=== PATIENT | female | born 1980 | race Caucasian/White ===

== ENCOUNTER 2023-11-08 05:49 | Inpatient (IN) | payer BC, SELFPAY ==
[2023-11-08] VITALS (41 sets, daily range): BP systolic 142–240; BP diastolic 89–141; PULSE 45–77; RESP 12–24; TEMP 36.6–37; O2SAT 93–100; BMI 29.7
--- NOTE | 2023-11-08 05:51 | XR_ITS ---
PROCEDURE INFORMATION: Exam: XR Chest Exam date and time: 11/08/2023 6:07 AM Age: 43 years old Clinical indication: Pain; Chest pressure; Additional info: Cp TECHNIQUE: Imaging protocol: Radiologic exam of the chest. Views: 1 view. COMPARISON: No relevant prior studies available. FINDINGS: Lungs: Unremarkable. No consolidation. Pleural spaces: Unremarkable. No pleural effusion. No pneumothorax. Heart/Mediastinum: Unremarkable. No cardiomegaly. Bones/joints: Unremarkable. IMPRESSION: No acute findings.
--- NOTE | 2023-11-08 05:51 | ECG_ITS ---
APPROVED REPORT Exam: Resting ECG HR:63 bpm ECG Measurements Heart Rate [address] 196 P 55 QRSd 108 QRS 37 QT 421 T 72 QTc 429 Conclusion SINUS RHYTHM POSSIBLE ANTERIOR MYOCARDIAL INFARCTION , PROBABLY OLD [30 ms Q WAVE IN V3/V4, OR R < 0.2 mV IN V4] Electronically signed by : SAQIB SARAVIA, 11/08/2023 15:56:07
--- NOTE | 2023-11-08 06:10 | [facility].EDCP ---
Discharge Plan Disposition Patient Disposition: Still a Patient Clinical Impressions Clinical Impression: Chest pain Discharge ED Provider: Angelica Cohen HPI <Hannah Atkins MD - Last Filed: 11/08/23 06:51> General Chief Complaint: Chest Pain Stated Complaint: Chest pain Time Seen by Provider: 11/08/23 05:51 Mode of Arrival: EMS Source of Information: Patient and EMS Limitations: No Limitations Description of Symptoms (Recalled from ER Triage Doc. by RN): 43 F presents from home with c/o [id number] chest pain that feels like indigestion rating it 4/10. 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 The last time she had HFCS this same episode happened. Patient was hypertensive when EMS arrive with systolic of 240. 5 minutes later when her chest pain was gone her BP systolic was 108. Upon arrival here patient is NAD, hypertensive again with the chest pain. History of Present Illness HPI narrative: 43-year-old female presents to the ER with concerns of midsternal chest pain that she states feels similar to heartburn. Pain does not radiate. Patient reports only taking natural products such as vitamins and eating whole foods, however she recently consumed a blizzard from [employer] which she believes likely had high fructose corn syrup and it. She states she had her band sawing machine operator doctor have discussed this previously and know that it causes her to have severe indigestion, severe high blood pressure. Patient reports she has previously been evaluated for similar symptoms and has had CTs, MRIs, cardiac workups, and it has never found anything. EMS reports that when they arrived on scene, she had blood pressure of 240. She was having chest pain at that time. Her chest pain spontaneously resolved and her blood pressure normalized to a systolic of 108. Upon arrival in the ER, her chest pain returned, initial blood pressure was 248, systolics have remained above 220. She continues having chest pain at this time. Patient denies any nausea, dizziness. She is refusing any medications at this time. Related Data Home Medications Medication Instructions Recorded Confirmed No Known Home Medications 11/08/23 11/08/23 Allergies Allergy/AdvReac Type Severity Reaction Status Date / Time Gadolinium-Containing Allergy Unknown Verified 11/08/23 05:57 Contrast Medi PFSH <Hannah Atkins MD - Last Filed: 11/08/23 06:51> FOR[facility]LY [facility] Disclaimer: The information contained in this section may have been updated after the patient was seen, as this information can be updated by other users. Medical History (Updated 11/08/23 @ 06:51 by Hannah Atkins MD) Hypertension Social History (Updated 11/08/23 @ 05:57 by Jaime Ho RN) Smoking Status: Current every day smoker alcohol intake: former current occupational status: employed Travel in the last 8 weeks: None <Hannah Atkins MD - Last Filed: 11/08/23 06:51> ROS Obtained: Yes All systems reviewed & no additional complaints except as documented Constitutional Constitutional: Denies chills, Denies fever(s), Denies headache(s) and Denies weakness Eyes Eyes: Denies change in vision ENT Ears, Nose, Mouth, and Throat: Denies dizziness, Denies headache(s), Denies nasal congestion and Denies sore throat Cardiovascular Cardiovascular: Reports chest pain, Denies dyspnea and Denies leg edema Respiratory Respiratory: Denies cough and Denies dyspnea Gastrointestinal Gastrointestingal: Denies abdominal pain, constipation, diarrhea, nausea or vomiting Genitourinary Female Genitourinary: Denies dysuria Musculoskeletal Musculoskeletal: Denies arthralgias, Denies myalgias, Denies numbness and Denies tingling Integumentary/Breasts Skin/Breast: Denies change in pigmentation Neurologic Neurologic: Denies dizziness, Denies headache(s), Denies numbness, Denies tingling and Denies weakness Physical Exam <Hannah Atkins MD - Last Filed: 11/08/23 06:51> General General appearance: alert and in no apparent distress Head Head exam: atraumatic and normocephalic Eye Eye exam: Present PERRL and EOMI ENT ENT exam: Present mucous membranes moist Neck Neck exam: Present normal inspection and full ROM Chest Chest inspection: Present symmetric chest wall rise Respiratory Respiratory exam: Present normal lung sounds bilaterally; Absent respiratory distress, wheezes or stridor Cardiovascular Cardiovascular exam: Present regular rate and normal rhythm Abdominal Exam Abdominal exam: Present soft; Absent distention, tenderness, guarding or rebound Extremities Exam Extremities exam: Present full ROM and other (2+ DP and PT); Absent edema Neurological Exam Neurological exam: Present alert and oriented X3; Absent motor sensory deficit Psychiatric Psychiatric exam: Present normal affect and normal mood Skin Skin exam: Present warm and dry HEART Score <MD Megan Eason Last Filed: 11/08/23 06:51> HEART Score HEART Score assessment performed?: No <Angelica Cohen DO - Last Filed: 11/08/23 12:29> HEART Score HEART Score assessment performed?: Yes History (anamnesis): Slightly suspicious ECG: Normal Age: <45 years Risk factors: No known risk factors Troponin: </= normal limit HEART Score: 0 Critical Care <MD Megan Eason Last Filed: 11/08/23 06:51> Critical Care Time Critical Care Time: No Medical Decision Making <Hannah Atkins MD - Last Filed: 11/08/23 06:51> Luke Inquiry Pt receiving controlled substance: No Vital Signs Vital Signs: 11/08/23 05:49 11/08/23 05:59 11/08/23 06:00 Temperature 98.6 F Temperature Source Oral Pulse Rate 60 62 Pulse Rate [Left] 70 Respiratory Rate 17 18 16 Blood Pressure 208/128 H 220/118 H Blood Pressure [Right Arm] 240/141 H Blood Pressure Mean 154 Blood Pressure Mean [Right Arm] 174 Blood Pressure Source Manual Cuff/ Auscultation Blood Pressure Source [Right Arm] Automatic Cuff Blood Pressure Position Sitting Blood Pressure Position [Right Arm] Sitting 02 Sat by Pulse Oximetry 97 97 97 Oxygen Delivery Method Room Air Room Air Room Air 11/08/23 06:00 11/08/23 06:04 11/08/23 06:07 Temperature Temperature Source Pulse Rate 62 70 Pulse Rate [Left] Respiratory Rate 13 Blood Pressure 198/122 H 198/122 H Blood Pressure [Right Arm] Blood Pressure Mean Blood Pressure Mean [Right Arm] Blood Pressure Source Blood Pressure Source [Right Arm] Blood Pressure Position Blood Pressure Position [Right Arm] 02 Sat by Pulse Oximetry 97 Oxygen Delivery Method Room Air 11/08/23 06:21 11/08/23 06:30 11/08/23 07:01 Temperature Temperature Source Pulse Rate 77 67 64 Pulse Rate [Left] Respiratory Rate 20 16 Blood Pressure 202/129 H 180/95 H 179/93 H Blood Pressure [Right Arm] Blood Pressure Mean 153 123 Blood Pressure Mean [Right Arm] Blood Pressure Source Blood Pressure Source [Right Arm] Blood Pressure Position Blood Pressure Position [Right Arm] 02 Sat by Pulse Oximetry 97 98 99 Oxygen Delivery Method Room Air Room Air Room Air 11/08/23 07:30 11/08/23 10:44 Temperature 98.1 F Temperature Source Oral Pulse Rate 69 69 Pulse Rate [Left] Respiratory Rate 17 17 Blood Pressure 176/97 H 176/97 H Blood Pressure [Right Arm] Blood Pressure Mean Blood Pressure Mean [Right Arm] Blood Pressure Source Automatic Cuff Blood Pressure Source [Right Arm] Blood Pressure Position Sitting Blood Pressure Position [Right Arm] 02 Sat by Pulse Oximetry 96 Oxygen Delivery Method Room Air Room Air Lab Data Labs: Lab Results 11/08/23 06:03: WBC 12.0 H, RBC 5.60 H, Hgb 12.3, Hct 38.2, MCV 68.2 L, MCH 21.9 L, MCHC 32.1, RDW 18.4 H, Plt Count 387, MPV 7.7, Neut % (Auto) 61.5, Lymph % (Auto) 25.3, [place] % (Auto) 7.5, Eos % (Auto) 4.8, Baso % (Auto) 0.9, Neut # (Auto) 7.4, Lymph # (Auto) 3.0, [place] # (Auto) 0.9, Eos # (Auto) 0.6 H, Baso # (Auto) 0.1, Sodium 142, Potassium 3.5, Chloride 107, Carbon Dioxide 29, Anion Gap 9.5, BUN 7, Creatinine 0.90, Estimated Creat Clear 109, Estimated GFR 68, Est GFR ( Amer) 82, Glucose 102 H, Calcium 9.7, Total Bilirubin 0.3, AST 26, ALT 22, Alkaline Phosphatase 76, Troponin I 0.02, Total Protein 6.9, Albumin 3.9, Globulin 3.0, Albumin/Globulin Ratio 1.3, Serum HCG, Qual Negative 11/08/23 08:47: Troponin I 0.21 H 11/08/23 06:03 11/08/23 06:03 Response Orders (Tests/Meds): ED MEDICATIONS Generic Name Dose Route Start Last Admin Trade Name Freq PRN Reason Stop Dose Admin Aspirin 81 mg 11/09/23 09:00 Aspirin Ec 81mg Tablet PO 06/13/24 08:59 DAILY TRAVIS Atorvastatin Calcium 40 mg 11/08/23 21:00 Atorvastatin 40mg Tablet PO 12/08/23 20:59 HS [facility] Fentanyl Citrate 50 mcg 11/08/23 10:45 11/08/23 11:17 Fentanyl 100mcg/2ml Vial IV 11/08/23 22:45 200 mcg Q3MINP PRN Administration Moderate to Severe Pain (4-10) Fentanyl Citrate 25 mcg 11/08/23 10:45 Fentanyl 250mcg/5ml Vial IV 11/08/23 22:45 Q3MINP PRN Moderate to Severe Pain (4-10) Fentanyl Citrate 50 mcg 11/08/23 10:45 Fentanyl 250mcg/5ml Vial IV 11/08/23 22:45 Q3MINP PRN Moderate to Severe Pain (4-10) Fentanyl Citrate 25 mcg 11/08/23 10:45 Fentanyl 100mcg/2ml Vial IV 11/08/23 22:45 Q3MINP PRN Moderate to Severe Pain (4-10) Flumazenil 0.2 mg 11/08/23 10:45 Flumazenil 0.1mg/Ml 5ml Vial IV 11/08/23 22:45 NEEDED PRN Sedation Heparin Sodium (Porcine) 10,000 unit 11/08/23 10:45 11/08/23 11:06 Heparin 1,000 Units/Ml 10ml Vial (General Administrator) IV 11/08/23 14:45 11,600 unit NEEDED PRN Administration [facility] Provider Hydralazine HCl 20 mg 11/08/23 10:45 Hydralazine 20mg/Ml Vial IV 11/08/23 14:45 ONCE PRN sbp>160 Adenosine 180 mg/ Sodium 90 mls @ 465.388 mls/hr 11/08/23 10:45 Chloride IV 11/08/23 14:45 ONCE PRN fractional flow reserve 180 MCG/KG/MIN Adenosine 90 mg/ Sodium 90 mls @ 930.776 mls/hr 11/08/23 10:45 Chloride IV 11/08/23 14:45 ONCE PRN fractional flow reserve 180 MCG/KG/MIN Sodium Chloride 1,000 mls @ 25 mls/hr 11/08/23 10:45 11/08/23 11:07 Sod Chloride 0.9% 500ml Bag IV 11/09/23 10:45 25 mls/hr .Q25H TRAVIS Administration Irbesartan 150 mg 11/08/23 12:30 Irbesartan 150mg Tab PO 12/08/23 12:29 DAILY TRAVIS Labetalol HCl 20 mg 11/08/23 10:45 Labetalol 20mg/4ml Syringe IV 11/08/23 14:45 ONCE PRN sbp>160 Metoprolol Tartrate 12.5 mg 11/08/23 21:00 Metoprolol Tartrate 25mg Tablet PO 12/08/23 20:59 BID TRAVIS Midazolam HCl 1 mg 11/08/23 10:45 Midazolam 2mg/2ml Vial IV 11/08/23 22:45 Q3MINP PRN Sedation Midazolam HCl 1 mg 11/08/23 10:45 11/08/23 11:17 Midazolam Hcl 1mg/1ml 5ml Vial IV 11/08/23 22:45 10 mg Q3MINP PRN Administration Sedation Miscellaneous 1 each 11/08/23 11:42 Consider Pt For Dual Antiplatelet Therapy At Discharge-Stent NOTAPPLIC 12/08/23 11:41 NEEDED PRN Reminder for s/p stent Naloxone HCl 0.4 mg 11/08/23 10:45 Naloxone 0.4mg/Ml Vial IV 11/08/23 22:45 Q5MINP PRN Decreased Respirations Nitroglycerin 800 mcg 11/08/23 10:45 11/08/23 11:06 Nitroglycerin 800mcg/8ml Syr (General Administrator) IA 11/08/23 14:45 800 mcg NEEDED PRN Administration [facility] Provider Nitroglycerin 0.4 mg 11/08/23 11:42 Nitroglycerin 0.4mg Sl Tablet SL 12/08/23 11:41 Q5MINP PRN Chest Pain Prasugrel 10 mg 11/09/23 09:00 Prasugrel 10mg Tab PO 12/09/23 08:59 DAILY TRAVIS Protamine Sulfate 50 mg 11/08/23 10:45 Protamine Sulfate 50mg/5ml Vial (General Administrator) IV 11/08/23 14:45 ONCE PRN act>200 Discontinued Medications Generic Name Dose Route Start Last Admin Trade Name Freq PRN Reason Stop Dose Admin Aspirin 324 mg 11/08/23 10:09 11/08/23 10:14 Aspirin 81mg Chewable Tablet PO 11/08/23 10:10 324 mg ONCE ONE Administration Diphenhydramine HCl 50 mg 11/08/23 10:45 11/08/23 11:06 Diphenhydramine 50mg/Ml Vial IV 11/08/23 10:46 50 mg ONCE ONE Administration Heparin Sodium/Sodium Chloride 3,000 unit 11/08/23 10:45 11/08/23 11:07 Heparin 1,000 Units/500ml Ns (General Administrator) IV 11/08/23 10:46 3,000 unit ONCE ONE Administration Labetalol HCl 10 mg 11/08/23 05:51 11/08/23 06:07 Labetalol 20mg/4ml Syringe IV 11/08/23 05:52 Not Given ONCE ONE Lidocaine HCl 20 ml 11/08/23 10:45 11/08/23 11:06 Lidocaine 1% 10ml Mdv IJ 11/08/23 10:46 10 ml ONCE ONE Administration Lidocaine HCl 20 ml 11/08/23 10:45 Lidocaine 1% 5ml Pf Vial IJ 11/08/23 10:46 ONCE ONE Verapamil HCl 2.5 mg 11/08/23 10:45 11/08/23 11:06 Verapamil 2.5mg/Ml 2ml Vial IV 11/08/23 10:46 2.5 mg ONCE ONE Administration ORDERS Category Date Time Status Cardiology Consult [Consult to Cardiology] [CONS] Cons 11/08/23 10:13 Active Routine CXR --portable [XR chest portable] Stat Exams 11/08/23 05:51 Completed Basic Metabolic Panel Stat Lab 11/08/23 10:45 Ordered CBC w/Auto Diff [Complete Blood Count Auto Diff] Stat Lab 11/08/23 06:03 Completed CMP [Comprehensive Metabolic Panel] Stat Lab 11/08/23 06:03 Completed Complete Blood Count Auto Diff Stat Lab 11/08/23 10:45 Ordered HCG Qualitative, Serum Stat Lab 11/08/23 06:03 Completed Trop I [Troponin I] Stat Lab 11/08/23 06:03 Completed Troponin I Q3H Lab 11/08/23 08:47 Completed MDM Narrative Medical Decision Narrative: In summary, this 43year old female who reportedly has a reaction to high fructose corn syrup presents to the emergency department today with high blood pressure, chest pain. On initial evaluation patient is hypertensive, normal heart rate, having active chest pain, no tenderness to palpation of the chest, no peripheral edema, no neurologic deficits. Differential diagnosis includes but is not limited to hypertensive urgency, hypertensive emergency, ACS, I considered PE but patient is PERC negative, also considered pneumothorax. ECG personally interpreted demonstrates normal sinus rhythm, rate 63, normal axis, borderline prolonged DC at 196, QTc normal at 429, no STEMI. I ordered IV labetalol for treatment of findings consistent with symptomatic severe hypertension, hypertensive urgency/emergency. Patient adamantly refuses any medications at this time. I explained to her that the risk of having persistently high blood pressure includes heart attack, stroke, permanent kidney damage. Patient understands and is competent to make this decision, she continues to refuse all medications at this time. Labs personally reviewed demonstrate mild leukocytosis, no anemia, normal electrolytes, no findings of kidney dysfunction, no findings of liver dysfunction. Initial troponin pending. XR personally interpreted demonstrates no acute intrathoracic abnormality, see radiology read for final interpretation. Patient handed off to Dr. Cohen at physician shift change for further management and disposition pending serial troponins and continued management. <Angelica Cohen, DO - Last Filed: 11/08/23 12:29> Vital Signs Vital Signs: 11/08/23 05:49 11/08/23 05:59 11/08/23 06:00 Temperature 98.6 F Temperature Source Oral Pulse Rate 60 62 Pulse Rate [Left] 70 Respiratory Rate 17 18 16 Blood Pressure 208/128 H 220/118 H Blood Pressure [Right Arm] 240/141 H Blood Pressure Mean 154 Blood Pressure Mean [Right Arm] 174 Blood Pressure Source Manual Cuff/ Auscultation Blood Pressure Source [Right Arm] Automatic Cuff Blood Pressure Position Sitting Blood Pressure Position [Right Arm] Sitting 02 Sat by Pulse Oximetry 97 97 97 Oxygen Delivery Method Room Air Room Air Room Air 11/08/23 06:00 11/08/23 06:04 11/08/23 06:07 Temperature Temperature Source Pulse Rate 62 70 Pulse Rate [Left] Respiratory Rate 13 Blood Pressure 198/122 H 198/122 H Blood Pressure [Right Arm] Blood Pressure Mean Blood Pressure Mean [Right Arm] Blood Pressure Source Blood Pressure Source [Right Arm] Blood Pressure Position Blood Pressure Position [Right Arm] 02 Sat by Pulse Oximetry 97 Oxygen Delivery Method Room Air 11/08/23 06:21 11/08/23 06:30 11/08/23 07:01 Temperature Temperature Source Pulse Rate 77 67 64 Pulse Rate [Left] Respiratory Rate 20 16 Blood Pressure 202/129 H 180/95 H 179/93 H Blood Pressure [Right Arm] Blood Pressure Mean 153 123 Blood Pressure Mean [Right Arm] Blood Pressure Source Blood Pressure Source [Right Arm] Blood Pressure Position Blood Pressure Position [Right Arm] 02 Sat by Pulse Oximetry 97 98 99 Oxygen Delivery Method Room Air Room Air Room Air 11/08/23 07:30 11/08/23 10:44 Temperature 98.1 F Temperature Source Oral Pulse Rate 69 69 Pulse Rate [Left] Respiratory Rate 17 17 Blood Pressure 176/97 H 176/97 H Blood Pressure [Right Arm] Blood Pressure Mean Blood Pressure Mean [Right Arm] Blood Pressure Source Automatic Cuff Blood Pressure Source [Right Arm] Blood Pressure Position Sitting Blood Pressure Position [Right Arm] 02 Sat by Pulse Oximetry 96 Oxygen Delivery Method Room Air Room Air Lab Data Labs: Lab Results 11/08/23 06:03: WBC 12.0 H, RBC 5.60 H, Hgb 12.3, Hct 38.2, MCV 68.2 L, MCH 21.9 L, MCHC 32.1, RDW 18.4 H, Plt Count 387, MPV 7.7, Neut % (Auto) 61.5, Lymph % (Auto) 25.3, [place] % (Auto) 7.5, Eos % (Auto) 4.8, Baso % (Auto) 0.9, Neut # (Auto) 7.4, Lymph # (Auto) 3.0, [place] # (Auto) 0.9, Eos # (Auto) 0.6 H, Baso # (Auto) 0.1, Sodium 142, Potassium 3.5, Chloride 107, Carbon Dioxide 29, Anion Gap 9.5, BUN 7, Creatinine 0.90, Estimated Creat Clear 109, Estimated GFR 68, Est GFR ( Amer) 82, Glucose 102 H, Calcium 9.7, Total Bilirubin 0.3, AST 26, ALT 22, Alkaline Phosphatase 76, Troponin I 0.02, Total Protein 6.9, Albumin 3.9, Globulin 3.0, Albumin/Globulin Ratio 1.3, Serum HCG, Qual Negative 11/08/23 08:47: Troponin I 0.21 H Response Orders (Tests/Meds): ED MEDICATIONS Generic Name Dose Route Start Last Admin Trade Name Freq PRN Reason Stop Dose Admin Aspirin 81 mg 11/09/23 09:00 Aspirin Ec 81mg Tablet PO 12/09/23 08:59 DAILY TRAVIS Atorvastatin Calcium 40 mg 11/08/23 21:00 Atorvastatin 40mg Tablet PO 12/08/23 20:59 HS TRAVIS Fentanyl Citrate 50 mcg 11/08/23 10:45 11/08/23 11:17 Fentanyl 100mcg/2ml Vial IV 11/08/23 22:45 200 mcg Q3MINP PRN Administration Moderate to Severe Pain (4-10) Fentanyl Citrate 25 mcg 11/08/23 10:45 Fentanyl 250mcg/5ml Vial IV 11/08/23 22:45 Q3MINP PRN Moderate to Severe Pain (4-10) Fentanyl Citrate 50 mcg 11/08/23 10:45 Fentanyl 250mcg/5ml Vial IV 11/08/23 22:45 Q3MINP PRN Moderate to Severe Pain (4-10) Fentanyl Citrate 25 mcg 11/08/23 10:45 Fentanyl 100mcg/2ml Vial IV 11/08/23 22:45 Q3MINP PRN Moderate to Severe Pain (4-10) Flumazenil 0.2 mg 11/08/23 10:45 Flumazenil 0.1mg/Ml 5ml Vial IV 11/08/23 22:45 NEEDED PRN Sedation Heparin Sodium (Porcine) 10,000 unit 11/08/23 10:45 11/08/23 11:06 Heparin 1,000 Units/Ml 10ml Vial (General Administrator) IV 11/08/23 14:45 11,600 unit NEEDED PRN Administration [facility] Provider Hydralazine HCl 20 mg 11/08/23 10:45 Hydralazine 20mg/Ml Vial IV 11/08/23 14:45 ONCE PRN sbp>160 Adenosine 180 mg/ Sodium 90 mls @ 465.388 mls/hr 11/08/23 10:45 Chloride IV 11/08/23 14:45 ONCE PRN fractional flow reserve 180 MCG/KG/MIN Adenosine 90 mg/ Sodium 90 mls @ 930.776 mls/hr 11/08/23 10:45 Chloride IV 11/08/23 14:45 ONCE PRN fractional flow reserve 180 MCG/KG/MIN Sodium Chloride 1,000 mls @ 25 mls/hr 11/08/23 10:45 11/08/23 11:07 Sod Chloride 0.9% 500ml Bag IV 11/09/23 10:45 25 mls/hr .Q25H TRAVIS Administration Irbesartan 150 mg 11/08/23 12:30 Irbesartan 150mg Tab PO 12/08/23 12:29 DAILY TRAVIS Labetalol HCl 20 mg 11/08/23 10:45 Labetalol 20mg/4ml Syringe IV 11/08/23 14:45 ONCE PRN sbp>160 Metoprolol Tartrate 12.5 mg 11/08/23 21:00 Metoprolol Tartrate 25mg Tablet PO 12/08/23 20:59 BID TRAVIS Midazolam HCl 1 mg 11/08/23 10:45 Midazolam 2mg/2ml Vial IV 11/08/23 22:45 Q3MINP PRN Sedation Midazolam HCl 1 mg 11/08/23 10:45 11/08/23 11:17 Midazolam Hcl 1mg/1ml 5ml Vial IV 11/08/23 22:45 10 mg Q3MINP PRN Administration Sedation Miscellaneous 1 each 11/08/23 11:42 Consider Pt For Dual Antiplatelet Therapy At Discharge-Stent NOTAPPLIC 12/08/23 11:41 NEEDED PRN Reminder for s/p stent Naloxone HCl 0.4 mg 11/08/23 10:45 Naloxone 0.4mg/Ml Vial IV 11/08/23 22:45 Q5MINP PRN Decreased Respirations Nitroglycerin 800 mcg 11/08/23 10:45 11/08/23 11:06 Nitroglycerin 800mcg/8ml Syr (General Administrator) IA 11/08/23 14:45 800 mcg NEEDED PRN Administration [facility] Family Day Care Provider Nitroglycerin 0.4 mg 11/08/23 11:42 Nitroglycerin 0.4mg Sl Tablet SL 12/08/23 11:41 Q5MINP PRN Chest Pain Prasugrel 10 mg 11/09/23 09:00 Prasugrel 10mg Tab PO 12/09/23 08:59 DAILY TRAVIS Protamine Sulfate 50 mg 11/08/23 10:45 Protamine Sulfate 50mg/5ml Vial (General Administrator) IV 11/08/23 14:45 ONCE PRN act>200 Discontinued Medications Generic Name Dose Route Start Last Admin Trade Name Freq PRN Reason Stop Dose Admin Aspirin 324 mg 11/08/23 10:09 11/08/23 10:14 Aspirin 81mg Chewable Tablet PO 11/08/23 10:10 324 mg ONCE ONE Administration Diphenhydramine HCl 50 mg 11/08/23 10:45 11/08/23 11:06 Diphenhydramine 50mg/Ml Vial IV 11/08/23 10:46 50 mg ONCE ONE Administration Heparin Sodium/Sodium Chloride 3,000 unit 11/08/23 10:45 11/08/23 11:07 Heparin 1,000 Units/500ml Ns (General Administrator) IV 11/08/23 10:46 3,000 unit ONCE ONE Administration Labetalol HCl 10 mg 11/08/23 05:51 11/08/23 06:07 Labetalol 20mg/4ml Syringe IV 11/08/23 05:52 Not Given ONCE ONE Lidocaine HCl 20 ml 11/08/23 10:45 11/08/23 11:06 Lidocaine 1% 10ml Mdv IJ 11/08/23 10:46 10 ml ONCE ONE Administration Lidocaine HCl 20 ml 11/08/23 10:45 Lidocaine 1% 5ml Pf Vial IJ 11/08/23 10:46 ONCE ONE Verapamil HCl 2.5 mg 11/08/23 10:45 11/08/23 11:06 Verapamil 2.5mg/Ml 2ml Vial IV 11/08/23 10:46 2.5 mg ONCE ONE Administration ORDERS Category Date Time Status Cardiology Consult [Consult to Cardiology] [CONS] Cons 11/08/23 10:13 Active Routine CXR --portable [XR chest portable] Stat Exams 11/08/23 05:51 Completed Basic Metabolic Panel Stat Lab 11/08/23 10:45 Ordered CBC w/Auto Diff [Complete Blood Count Auto Diff] Stat Lab 11/08/23 06:03 Completed CMP [Comprehensive Metabolic Panel] Stat Lab 11/08/23 06:03 Completed Complete Blood Count Auto Diff Stat Lab 11/08/23 10:45 Ordered HCG Qualitative, Serum Stat Lab 11/08/23 06:03 Completed Trop I [Troponin I] Stat Lab 11/08/23 06:03 Completed Troponin I Q3H Lab 11/08/23 08:47 Completed ECG Data Tracing #2: Attestation: I reviewed this ECG and interpreted as documented below: ECG Narrative: Normal sinus rhythm with a ventricular rate of 67 bpm. New acute T wave inversions in V1-6 concerning for acute ischemia, though not STEMI. Significant changes from prior ECG ECG initial impression date: 11/08/23 ECG initial impression time: 10:25 MDM Narrative Medical Decision Narrative: In summary, this 43year old female who reportedly has a reaction to high fructose corn syrup presents to the emergency department today with high blood pressure, chest pain. On initial evaluation patient is hypertensive, normal heart rate, having active chest pain, no tenderness to palpation of the chest, no peripheral edema, no neurologic deficits. Differential diagnosis includes but is not limited to hypertensive urgency, hypertensive emergency, ACS, I considered PE but patient is PERC negative, also considered pneumothorax. ECG personally interpreted demonstrates normal sinus rhythm, rate 63, normal axis, borderline prolonged DC at 196, QTc normal at 429, no STEMI. I ordered IV labetalol for treatment of findings consistent with symptomatic severe hypertension, hypertensive urgency/emergency. Patient adamantly refuses any medications at this time. I explained to her that the risk of having persistently high blood pressure includes heart attack, stroke, permanent kidney damage. Patient understands and is competent to make this decision, she continues to refuse all medications at this time. Labs personally reviewed demonstrate mild leukocytosis, no anemia, normal electrolytes, no findings of kidney dysfunction, no findings of liver dysfunction. Initial troponin pending. XR personally interpreted demonstrates no acute intrathoracic abnormality, see radiology read for final interpretation. Patient handed off to Dr. Cohen at physician shift change for further management and disposition pending serial troponins and continued management. Noel, DO: On my assessment of the patient, she is resting comfortably and complains of no pain. She still is hypertensive with systolics in the 170s, however she is significantly lower than the initial 200s. Labs demonstrated very mild leukocytosis and initial troponin is 0.02. At 0700, patient was placed in ED observation status pending second troponin to determine whether or not the patient would be appropriate for discharge versus admission. The patient was provided serial reevaluations and cardiac monitoring while awaiting ultimate disposition. Second troponin came back elevated at 0.21. Patient continues to have no complaints of chest pain at this time and is currently asymptomatic. Given elevated troponin, repeat EKG was obtained that demonstrated new T wave inversions in the anterolateral leads which is concerning for ischemia. Given this, I urgently called cardiology for consultation who ended up taking the patient to the General Administrator. She was given oral aspirin prior to going to the General Administrator and she was transported there in stable condition.
[2023-11-08 06:11] LABS: Basophils # 0.1 K/mm3 (0-0.2); Basophils % 0.9 % (0.1-2.0); Eosinophils # 0.6 K/mm3 (0.0-0.4); Eosinophils % 4.8 % (0.1-12.0); Hematocrit 38.2 % (37.0-47.0); Hemoglobin 12.3 g/dL (12.2-16.2); Lymphocytes % 25.3 % (10-50); Mean Corpuscular HGB Conc 32.1 g/dL (31.8-35.4); Mean Corpuscular Hemoglobin 21.9 pg (27.0-31.2); Mean Corpuscular Volume 68.2 fl (81-99); Mean Platelet Volume 7.7 fl (7.4-10.4); Monocytes # 0.9 K/mm3 (0.1-1.0); Monocytes % 7.5 % (1.7-9.3); Neutrophils # 7.4 K/mm3 (1.8-7.8); Neutrophils % 61.5 % (37.0-80.0); Platelet Count 387 K/mm3 (142-424); Red Cell Distribution Width 18.4 % (11.5-17.5)
--- NOTE | 2023-11-08 06:12 | PC.NURSE ---
Pt refuses Labetalol to help lower her BP 198/[address] Atkins at bedside explaining the risks of HTN. Pt states she does not want any medication.
[2023-11-08 06:18] LABS: Alanine Aminotransferase 22 U/L (12-78); Albumin Level 3.9 g/dl (3.5-5.0); Albumin/Globulin Ratio 1.3 (1.1-1.8); Alkaline Phosphatase 76 U/L (38-126); Anion Gap 9.5 mEq/L (5-15); Aspartate Amino Transferase 26 U/L (14-36); Bilirubin,Total 0.3 mg/dl (0.2-1.3); Blood Urea Nitrogen 7 mg/dl (7-17); Calcium 9.7 mg/dl (8.4-10.2); Carbon Dioxide 29 mmol/L (22.0-30.0); Chloride 107 mmol/L (98-107); Creatinine Clearance Estimated 109 mL/min (50-200); Estimated Glomerular Filt Rate 68 ml/min (>60); GFR (African American) 82 ML/MIN (>60); Glucose 102 mg/dl (74-100); Potassium 3.5 mmoL/L (3.5-5.1); Sodium 142 mmol/L (136-145); Total Protein,Serum 6.9 g/dl (6.3-8.2)
[2023-11-08 07:14] LABS: HCG Qualitative, Serum Negative (Negative)
[2023-11-08 07:18] LABS: Troponin I 0.02 ng/ml (0.00-0.034)
--- NOTE | 2023-11-08 08:02 | PC.NURSE ---
Dr. Cohen at bedside
[2023-11-08 10:09] LABS: Troponin I 0.21 ng/ml (0.00-0.034)
--- NOTE | 2023-11-08 10:09 | PC.NURSE ---
lab called with critical : trop 0.21 Dr Cohen notified and at bedside
[2023-11-08] MEDS: ASPIRIN 81MG CHEWABLE TABLET 324 MG PO (10:14)
--- NOTE | 2023-11-08 10:23 | ECG_ITS ---
APPROVED REPORT Exam: Resting ECG HR:67 bpm ECG Measurements Heart Rate 67 AXES NM 165 P 0 QRSd 97 QRS -7 QT 473 T 130 QTc 488 Conclusion SINUS RHYTHM ANTERIOR MYOCARDIAL INFARCTION , OF INDETERMINATE AGE [40+ ms Q WAVE AND/OR ST/T ABNORMALITY IN V3/V4] MODERATE T-WAVE ABNORMALITY, CONSIDER LATERAL ISCHEMIA [-0.1+ mV T-WAVE IN I/aVL/V5/V6] Concern for Wellen's criteria, anterolateral ischemia present Electronically signed by : SAQIB SARAVIA, 11/08/2023 15:55:50
--- NOTE | 2023-11-08 10:26 | PC.NURSE ---
Spoke with Telma in Cardiology. States Jose G Monson should be down shortly to see the patient.
--- NOTE | 2023-11-08 10:33 | PC.NURSE ---
Cardiology at bedside.
--- NOTE | 2023-11-08 10:38 | IR_ITS ---
APPROVED REPORT Patient Location: Emergent Rn Palliative: SADIQ Norris RT (R) PROCEDURES Selective coronary angiogram Drug-eluting stent deployment to the proximal and mid LAD Intravascular ultrasound to the proximal and mid LAD INDICATION Acute non-ST elevation myocardial infarction, Coronary artery disease, Complex intervention guided by IVUS Informed consent was obtained prior to the procedure. COMPLICATIONS None Estimated Blood Loss: Less than 10 mls TECHNIQUE One percent lidocaine used to anesthetize the right anterior aspect of the wrist. The right radial artery was accessed via the Seldinger technique. A 6 Guyanese sheath was placed in the right radial artery. 2.5 mg of Verapamil, 800 mcg of nitroglycerin, 1mg Lidocaine and 5000 U Heparin were given through the arterial sheath. The papa catheter was also used to perform selective coronary angiogram. At the end of the diagnostic angiogram therapeutic heparin was administered giving a therapeutic ACT and the guide catheter was placed in the left main artery followed by Choice PT extra-support wire placed down the LAD. A 3.5 x 30 mm Ackworth frontier stent was placed in the proximal to mid LAD and deployed at 20 trev. A 4 mm x 12 mm balloon was then advanced to the mid to distal portion of the stent deployed at 24 trev. The balloon was brought back and deployed at 24 trev to further dilate. Following this intravascular ultrasound probe was advanced which demonstrated good stent apposition however additional plaque persisted and the stent was not fully deployed. A 5 mm x 12 mm noncompliant balloon was then deployed at 20 trev in the proximal and midportion of the stent. Excellent angiographic results were obtained with TATY-3 flow being present before and after the procedure. At the end of procedure the apparatus was removed the sheath was removed good hemostasis was achieved using TR banding patient was transferred to the postop holding in stable condition ANGIOGRAPHIC RESULTS The left main artery Normal The left anterior descending artery Is a large-caliber vessel which wraps the apex. Proximally there is an 80% stenosis followed by focal 90% stenosis followed by additional mid vessel 40 and 50% stenoses. Distally the 70 to 80% concentric stenosis is present as the LAD wraps the apex. Proximally a small to medium sized first diagonal artery has an ostial 90% stenosis while the second small to medium size second diagonal artery has an ostial 70 to 80% stenosis. The circumflex artery Is a dominant vessel and gives rise to a large ramus intermedius which has proximal 30% stenosis with a mid vessel 70% concentric stenosis The right coronary artery Is a dominant vessel and has proximal and mid vessel diffuse long 50% stenoses. Distally the vessel has multiple 30% stenosis. The posterior descending artery has a proximal concentric 50% stenosis with an additional mid vessel 60% stenosis The [place] ventriculogram reveals Was not performed The left ventricular end-diastolic pressure Was not measured IMPRESSION Critical proximal LAD disease as described above Successful stenting of the proximal to mid critical LAD critical disease reduced to 0% with 1 drug-eluting stent postdilated to over 5 mm in diameter proximally tapering to 3.75 mm distally Persistent moderate to severe disease in a large tortuous ramus intermedius Persistent diffuse moderate disease as described above PLAN 1. Effient 10 mg daily plus aspirin 81 mg daily 2. Start Crestor 40 mg daily with goal LDL less than 55 to be achieved with high intensity statin 3. Immediate and absolute avoidance of all tobacco products 4. Start JOSE G inhibitors and beta-blockers 5. Recommend renal duplex due to malignant hypertension although it is likely patient's hypertension stemmed from critical coronary artery disease 6. Consider carotid ultrasound if bruits present 7. Recommend echocardiogram to better evaluate ejection fraction 8. Cardiac rehabilitation Electronically signed by : Reynold Regan MD 11/08/2023 14:40:23
--- NOTE | 2023-11-08 10:40 | PC.NURSE ---
Dr. Regan called asking for pt to come up to cathlab. Ron Hull at bedside discussing with pt as she initially refused. She is now agreeable to heart cath. Pt placed in gown. Heart cath consent being signed.
--- NOTE | 2023-11-08 10:44 | PC.NURSE ---
Pt taken to propagator laborer per propagator laborer team via stretcher.
--- NOTE | 2023-11-08 10:45 | PC.NURSE ---
scenic arts supervisor & registration notified of pt being sent to labor supervisor.
[2023-11-08] MEDS: diphenhydrAMINE 50MG/ML VIAL 50 MG IV (11:06)
[2023-11-08] MEDS: VERAPAMIL 2.5MG/ML 2ML VIAL 2.5 MG IV (11:06)
[2023-11-08] MEDS: LIDOCAINE 1% 10ML MDV 20 ML IJ (11:06)
[2023-11-08] MEDS: HEPARIN 1,000 UNITS/ML 10ML VIAL (CATH LAB) 10000 UNIT IV (11:06)
[2023-11-08] MEDS: NITROGLYCERIN 800MCG/8ML SYR (CATH LAB) 800 MCG IA (11:06)
[2023-11-08] MEDS: 0.9 % SODIUM CHLORIDE 500 ML 25 ML IV (11:07)
[2023-11-08] MEDS: HEPARIN 1,000 UNITS/500ML NS (CATH LAB) 3000 UNIT IV (11:07)
[2023-11-08] MEDS: FENTANYL 100MCG/2ML VIAL 50 MCG IV (11:17)
[2023-11-08] MEDS: MIDAZOLAM HCL 1MG/1ML 5ML VIAL 1 MG IV (11:17)
--- NOTE | 2023-11-08 11:45 | ECG_ITS ---
APPROVED REPORT Exam: Resting ECG HR:61 bpm ECG Measurements Heart Rate 61 AXES MI 185 P 36 QRSd 99 QRS -2 QT 533 T 171 QTc 537 Conclusion SINUS RHYTHM POSSIBLE ANTERIOR MYOCARDIAL INFARCTION , OF INDETERMINATE AGE [30 ms Q WAVE IN V3/V4, OR R < 0.2 mV IN V4] MODERATE T-WAVE ABNORMALITY, CONSIDER LATERAL ISCHEMIA [-0.1+ mV T-WAVE IN I/aVL/V5/V6] ABNORMAL ECG UNCONFIRMED REPORT Electronically signed by : Denver Torres MD 11/12/2023 12:26:13
--- NOTE | 2023-11-08 12:13 | P.HP_ITS ---
History of Present Illness *Admission Date: 11/08/23 *Reason for visit:: chest pain, NSTEMI *History of present illness: Ms. Gilbert is a 43-year-old female who presented from home with complaint of substernal chest pain that began this morning at about 4 AM. Pain rated a 4 out of 10. Has been dealing with high blood pressure for some time but treats it naturally with supplements. Thought she was having some indigestion or heartburn. Denies any carlos emesis, confusion, shortness of breath. Denies having pain or weakness with exertion preceding this. Patient is a longtime smoker, has lost about 40 pounds in the past 6 months. Moved to [place] within the past year from [place]. Workup in the ER with EKG showing Wellen sign. Had slight bump in her troponin; Initial troponin 0.02, repeat troponin 0.21. She was brought in via EMS and found to have systolic blood pressure 240. Chest pain improved with improvement in her blood pressure. When she became hypertensive again, chest pain returned. Cardiology was contacted, patient was taken to the Asphalt Plant Operator for treatment of NSTEMI. Medicine consulted after heart cath for admission and further management. Patient found to have critical proximal LAD lesion, status post 1 stent. Started on dual antiplatelet therapy. After arrival to the floor, patient still having some intermittent chest pain, appears to correlate to her elevated blood pressure. She is quite fatigued however. and sons at bedside helps supplement history. Afebrile and on room air [facility] Disclaimer: The information contained in this section may have been updated after the patient was seen, as this information can be updated by other users. Medical History Asthma Hypertension Surgical History H/O elbow surgery Family History Other No significant family history Social History Smoking Status: Current every day smoker alcohol intake: former current occupational status: unemployed Travel in the last 8 weeks: None Review of Systems Review of Systems Review of systems (narrative): 14 point review of systems performed, pertinent positives and negatives as per HPI Constitutional Constitutional: Denies headache(s) and Denies weakness ENT Ears, Nose, Mouth, and Throat: Denies dizziness and Denies headache(s) *Musculoskeletal Musculoskeletal: Denies numbness and Denies tingling *Neurologic Neurologic: Denies dizziness, Denies headache(s), Denies numbness, Denies tingling and Denies weakness Meds Home Medications and Allergies Home Medications Medication Instructions Recorded Confirmed Type No Known Home Medications 11/08/23 11/08/23 History New Prescriptions to Start Prescriptions: Allergies Allergy/AdvReac Type Severity Reaction Status Date / Time Gadolinium-Containing Allergy Unknown Verified 11/08/23 05:57 Contrast Medi Exam Data for Last 24 hours Vital signs and Labs for Last 24 Hours: Temp Pulse Resp BP Pulse Ox O2 Del Method 98.1 F 62 17 198/100 H 93 L Room Air 11/08/23 10:44 11/08/23 11:37 11/08/23 11:37 11/08/23 11:37 11/08/23 11:37 11/08/23 11:37 Laboratory Results - last 24 hr 11/08/23 06:03: WBC 12.0 H, RBC 5.60 H, Hgb 12.3, Hct 38.2, MCV 68.2 L, MCH 21.9 L, MCHC 32.1, RDW 18.4 H, Plt Count 387, MPV 7.7, Neut % (Auto) 61.5, Lymph % (Auto) 25.3, [place] % (Auto) 7.5, Eos % (Auto) 4.8, Baso % (Auto) 0.9, Neut # (Auto) 7.4, Lymph # (Auto) 3.0, [place] # (Auto) 0.9, Eos # (Auto) 0.6 H, Baso # (Auto) 0.1, Sodium 142, Potassium 3.5, Chloride 107, Carbon Dioxide 29, Anion Gap 9.5, BUN 7, Creatinine 0.90, Estimated Creat Clear 109, Estimated GFR 68, Est GFR ( Amer) 82, Glucose 102 H, Calcium 9.7, Total Bilirubin 0.3, AST 26, ALT 22, Alkaline Phosphatase 76, Troponin I 0.02, Total Protein 6.9, Albumin 3.9, Globulin 3.0, Albumin/Globulin Ratio 1.3, Serum HCG, Qual Negative 11/08/23 08:47: Troponin I 0.21 H I & O for Last 24 hours: Intake & Output 11/05/23 11/06/23 11/07/23 11/08/23 23:59 23:59 23:59 23:59 Weight 86.183 kg Constitutional Constitutional: no acute distress and average body habitus *Routine HEENT Exam Head: Present normocephalic Eye: Present EOMI and PERRL ENT: Present mucous membranes moist *Routine Neck Exam Neck: Present supple; Absent lymphadenopathy *Routine Respiratory Exam Respiratory: Present CTA bilaterally *Routine Cardiovascular Exam Cardiovascular: Present RRR *Routine Abdominal Exam Abdominal: Present soft and normoactive bowel sounds; Absent tenderness *Routine Rectal Exam Rectal:: deferred *Routine Genitalia Exam Genitalia:: deferred *Routine Extremities Exam Extremities: Absent cyanosis, clubbing or edema *Routine Skin Exam Skin: Present warm; Absent rash *Routine Neurological Exam Neurological: Present alert, oriented X3 and moving all extremities; Absent altered mental status Assessment and Plan *Assessment and plan (1) NSTEMI (non-ST elevated myocardial infarction): Status: Acute Category: Medical Code(s): I21.4 - Non-ST elevation (NSTEMI) myocardial infarction (2) Hypertensive emergency: Status: Acute Category: Medical Code(s): I16.1 - Hypertensive emergency (3) Tobacco use: Status: Acute Category: Social Hx Code(s): Z72.0 - Tobacco use (4) Chest pain: Status: Acute Category: Medical Code(s): R07.9 - Chest pain, unspecified Plan Ms. Frazier is a 43-year-old female who presented with chest pain. Found to have NSTEMI. Taken urgently to the Asphalt Plant Operator from the ER, had critical stenosis of proximal LAD. Status post 1 stent. Discussed case with cardiology in the ER physicians. Request admission for further management and monitoring for at least 48 hours post cath in the setting of critical proximal LAD lesion. Medicine agreed to admit. Necessitating inpatient management. Still having elevated blood pressures. Will monitor on telemetry. Problems addressed as follows: CAD status post NSTEMI with drug-eluting stent on 11/07 Hypertension -Cardiology consulted, patient taken for left heart cath. Had critical stenosis of proximal LAD. Successfully stented with 1 stent. Initial Trop 0.02, repeat 0.2. EKG personally reviewed showing Wellen sign and anterior and inferior leads -Will continue dual antiplatelet therapy with aspirin 81 mg daily and Effient 10 mg daily -Lipid panel pending, initiate Lipitor 40 mg nightly -Initiate irbesartan 300 mg daily. Received 250 mg once today. Blood pressure still elevated, will initiate clonidine 0.1 mg for blood pressure above 180 -Holding on beta-blockers patient's heart rate is in the low 50s -Screen for diabetes and hypothyroid, TSH 2.4, A1c 5.1 -Patient smokes heavily, discussed need to avoid tobacco products -Pending response to blood pressure medication, may need renal artery duplex as an outpatient. -Repeat CBC, CMP, magnesium ordered for the morning -Echo pending -Continue sublingual nitro as needed for chest pain. Related to hypertension. Anticipate improvement with addressing blood pressure Tobacco use disorder: Nicotine patch 21 mg as needed daily. Counseled on benefits of cessation and need to stop smoking given severe coronary artery disease at the age of 43. Smokes a pack a day. Family states understanding. Full code Cardiac diet Heparinized and Asphalt Plant Operator Will monitor for 48 hours post cath. Continue telemetry. Surrogate decision maker is her .
--- NOTE | 2023-11-08 12:14 | CA_ITS ---
FINAL REPORT TECHNIQUE: Grayscale, color Doppler and duplex Doppler ultrasound of the kidneys, aorta and renal arteries was performed. Multiple velocities were measured. CLINICAL HISTORY: HTN, NSTEMI COMPARISON: None FINDINGS: Aorta velocity: 6.3 cm/sec Right kidney: 11.8 cm. No evidence of hydronephrosis or mass. Right intrarenal RI: 0.6 Right renal artery velocity: 146 cm/sec. Right RAR (Renal artery-Aortic Ratio): 1.9 Left Kidney: 12.2 cm. No evidence of hydronephrosis or mass. Left intrarenal RI: 0.48 Left renal artery velocity: 146 cm/sec. Left RAR (Renal Artery-Aortic Ratio): 1.9 IMPRESSION: No evidence of significant renal artery stenosis. CT angiogram or postcontrast MR angiogram would be more sensitive for evaluation of possible renal artery stenosis. Reviewed, Interpreted and Dictated by Shawn Rodas III, MD Transcribed by Zamzam Velasquez Authenticated and [facility]
--- NOTE | 2023-11-08 12:16 | CA_ITS ---
APPROVED REPORT EXAM: Comprehensive 2D, Doppler, and color-flow Echocardiogram Data Governance Consultant: Kim Tee RT(R) Ht: 5 ft 7 in Wt: 190lbs BSA: 1.98 BP: 220/118 mmHg Indications: NSTEMI, CP, smoker, HTN, elevated troponins, heart cath today with stents placed. 2D Dimensions LA Volume 26.40 mL LA Volume Index 13.33 mL/m2 (M/F) 16-34 EF AP4 54.60 % GL Strain -12.9 % M-Mode Dimensions RVDd 2.99 cm (0.9-2.6) LA Diam 3.62 cm (1.9-4.0) LVDd 4.84 cm (3.5-5.7) LVDs 3.82 cm (3.5-5.7) IVSd 1.02 cm (0.6-1.1) PWd 1.13 cm (0.6-1.1) EF (Teich) 42.80% FS 21.10% EDV (Teich) 109.60 mL ESV (Teich) 62.70 mL LV Diastology E Decel Time 193 (160-240 msec) E/A Ratio 0.9 Mitral Valve MV E Max Jefry. 71.0 (40-130 cm/s) MV A Velocity 79.0 (40-130 cm/s) E/A Ratio 0.90 MV PHT 57.0 ms Left Ventricle The left ventricle is normal size. The left ventricular systolic function is normal. The left ventricular ejection fraction is within the normal range. There is increased LV wall thickness. There is near akinesis of the LV apex. Transmitral Doppler flow pattern suggests impaired LV relaxation. LVEF is 55%. Right Ventricle The right ventricle is normal size. The right ventricular systolic function is normal. Atria The left atrium size is normal. The right atrium size is normal. There is no Doppler evidence of interatrial shunt. Aortic Valve The aortic valve opens well. There is no aortic valvular stenosis. No aortic regurgitation is present. Mitral Valve The mitral valve is normal in structure. No evidence of mitral valve stenosis. There is no mitral valve regurgitation noted. Tricuspid Valve The tricuspid valve leaflets are thin and pliable. Trace tricuspid regurgitation. There is insufficient TR jet to estimate RVSP. Pulmonic Valve The pulmonary valve is normal in structure. Trace pulmonic regurgitation. Great Vessels The aortic root is normal in size. The ascending aorta is normal in size. IVC is normal in size and collapses >50% with inspiration. Pericardium There is no pericardial effusion. Other Information Study Quality: Fair Conclusion Normal biventricular systolic function. Near akinesis of the LV apex. No significant valvular stenosis or regurgitation. In the future, further TTE evaluations are recommended with ultrasound enhancing agent (Definity study) to better delineate the LV endocardial border at the apex and rule out LV aneurysm and/or apical thrombus formation. Electronically signed by : Angelia Hwang MD 11/09/2023 12:55:53
--- NOTE | 2023-11-08 12:27 | PC.NURSE ---
arrived by garyer from pathology lab technician
[2023-11-08] MEDS: IRBESARTAN 150MG TAB 150 MG PO (14:01)
[2023-11-08] MEDS: NITROGLYCERIN 0.4MG SL TABLET 0.400000000000000022 MG SL ×2 (14:18→15:12)
[2023-11-08] MEDS: MORPHINE 2MG/ML SYRINGE 2 MG IV (14:22)
[2023-11-08] MEDS: IOPAMIDOL-370 (76%);100ML BOTTLE 120 ML IV (15:15)
[2023-11-08 15:18] LABS: CATHL Activated Clotting Time 252 SEC (74-125)
--- NOTE | 2023-11-08 15:34 | EXP.CARD.CON ---
History of Present Illness History of Present Illness Consult date: 11/08/23 Requesting physician: Angelica Cohen Consult reason: chest pain Chief complaint: chest pain History of present illness: 43-year-old white female without known cardiovascular disease who typically follows with a email deployment specialist for treatment of her high blood pressure by avoidance of high fructose corn syrup and red dye.. She states her blood pressures typically 130-140 at rest but will elevate greater than 240 at home associated with severe chest pain and shortness of breath. She states she had Dairy Patel last night which contains high fructose corn syrup and increased her blood pressure to 240. Symptoms continued and worsened so she came to the emergency room. Initial EKG was normal with first troponin 0.02. Her symptoms improved with blood pressure reduction to 170 but repeat troponin was elevated at 0.2 and repeat EKG showed Wellens sign with anterolateral ischemic changes noted. Patient was agreeable to left heart cath where she was found to have severe multivessel disease including a proximal LAD stenosis which was stented successfully. [facility] Disclaimer: The information contained in this section may have been updated after the patient was seen, as this information can be updated by other users. Medical History Asthma Hypertension Surgical History H/O elbow surgery Family History Other No significant family history Social History Smoking Status: Current every day smoker alcohol intake: former current occupational status: unemployed Travel in the last 8 weeks: None Review of Systems Constitutional Constitutional: Denies headache(s) and Denies weakness Eyes Eyes: Denies loss of vision ENT Ears, Nose, Mouth, and Throat: Denies dizziness and Denies headache(s) *Cardiovascular Cardiovascular: Reports chest pain and Denies dyspnea *Respiratory Respiratory: Denies cough and Denies dyspnea *Gastrointestinal Gastrointestinal: Denies change in stool character, Denies nausea and Denies vomiting *Musculoskeletal Musculoskeletal: Denies numbness and Denies tingling Integumentary/Breasts Skin/Breast: Denies changing lesions *Neurologic Neurologic: Denies dizziness, Denies headache(s), Denies loss of vision, Denies numbness, Denies tingling and Denies weakness Exam Data for Last 24 hours Vital signs and Labs for Last 24 Hours: Temp Pulse Resp BP Pulse Ox O2 Del Method 98.1 F 55 L 18 175/106 H 96 Room Air 11/08/23 10:44 11/08/23 14:50 11/08/23 14:50 11/08/23 14:50 11/08/23 14:50 11/08/23 14:50 Laboratory Results - last 24 hr 11/08/23 06:03: WBC 12.0 H, RBC 5.60 H, Hgb 12.3, Hct 38.2, MCV 68.2 L, MCH 21.9 L, MCHC 32.1, RDW 18.4 H, Plt Count 387, MPV 7.7, Neut % (Auto) 61.5, Lymph % (Auto) 25.3, [place] % (Auto) 7.5, Eos % (Auto) 4.8, Baso % (Auto) 0.9, Neut # (Auto) 7.4, Lymph # (Auto) 3.0, [place] # (Auto) 0.9, Eos # (Auto) 0.6 H, Baso # (Auto) 0.1, Sodium 142, Potassium 3.5, Chloride 107, Carbon Dioxide 29, Anion Gap 9.5, BUN 7, Creatinine 0.90, Estimated Creat Clear 109, Estimated GFR 68, Est GFR ( Amer) 82, Glucose 102 H, Calcium 9.7, Total Bilirubin 0.3, AST 26, ALT 22, Alkaline Phosphatase 76, Troponin I 0.02, Total Protein 6.9, Albumin 3.9, Globulin 3.0, Albumin/Globulin Ratio 1.3, Serum HCG, Qual Negative 11/08/23 08:47: Troponin I 0.21 H 11/08/23 11:14: Activated Clotting Time 252 H* I & O for Last 24 hours: Intake & Output 11/05/23 11/06/23 11/07/23 11/08/23 23:59 23:59 23:59 23:59 Weight 190 lb Constitutional Constitutional: no acute distress and cooperative *Routine HEENT Exam Eye: Present PERRL *Routine Respiratory Exam Respiratory: Present CTA bilaterally; Absent accessory muscle use, wheezes or crackles *Routine Cardiovascular Exam Cardiovascular: Present RRR, Normal S1 and Normal S2; Absent murmur, gallop or rubs *Routine Abdominal Exam Abdominal: Present soft; Absent tenderness *Routine Extremities Exam Extremities: Present pulses intact; Absent cyanosis or edema *Routine Skin Exam Skin: Present intact; Absent erythema or wounds *Routine Neurological Exam Neurological: Present alert and oriented X3 Routine Psychiatric Exam Psychiatric: Present cooperative Meds Home Medications and Allergies Home Medications Medication Instructions Recorded Confirmed Type No Known Home Medications 11/08/23 11/08/23 History New Prescriptions to Start Prescriptions: Allergies Allergy/AdvReac Type Severity Reaction Status Date / Time Gadolinium-Containing Allergy Unknown Verified 11/08/23 05:57 Contrast Medi Assessment and Plan *Assessment and plan (1) NSTEMI (non-ST elevated myocardial infarction): Status: Acute Category: Medical Code(s): I21.4 - Non-ST elevation (NSTEMI) myocardial infarction (2) Hypertensive emergency: Status: Acute Category: Medical Code(s): I16.1 - Hypertensive emergency (3) Tobacco use: Status: Acute Category: Social Hx Code(s): Z72.0 - Tobacco use Plan 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 - new dx this admission but symptoms of CP and Htn for months - LHC here shows severe diffuse MV-CAD but only obstructive lesions were in LAD and stented successfully - start DAPT, BB, Statin - BP control - Goal LDL <55 - avoid tob Htn Emergency - BP 240 with chest pain, on no meds at home - add ARB, BB, MRA - goal <170s prior to DC - check OP renal duplex and ultrasound HLD/DM? - check lipid panel and A1C Tob - Recommend complete/permanent cessation
[2023-11-08] MEDS: ONDANSETRON 4MG/2ML VIAL 4 MG IV (15:46)
[2023-11-08 16:16] LABS: Hemoglobin A1C 5.1 % (4.0-6.0)
[2023-11-08] MEDS: SPIRONOLACTONE 25MG TABLET 25 MG PO (16:18)
[2023-11-08 16:24] LABS: Thyroid Stimulating Hormone 2.48 uIU/mL (0.465-4.68)
[2023-11-08] MEDS: ACETAMINOPHEN 325MG TAB 650 MG PO (18:09)
[2023-11-08] MEDS: cloNIDine 0.1MG TABLET 0.100000000000000006 MG PO (18:09)
--- NOTE | 2023-11-08 18:40 | PC.NURSE ---
Pt arrived to the floor via stretcher accompanied by cath laboratory technician staff. She was drowsy upon arrival but is now fully awake. She has reported chest pain and bp has been elevated. MD notified, nitro sl x2, 2mg morphine and 150mg of irbesartan administered. BP started to lower temporarily then spiked again. MD notified and 0.1mg of clonidine x1 administered. Pt also had an episode of vomiting, md notified and prn zofran administered per aug. Right radial site is covered w/telfa and tegaderm. No bleeding or hematoma noted. She's been sinus fredy w/prolonged qt and inverted t wave on tele. She denies any questions or concerns at this time. Bed is locked and in the lowest position, call light within reach.
[2023-11-08] MEDS: HYDRALAZINE 20MG/ML VIAL 10 MG IV (19:42)
--- NOTE | 2023-11-08 20:20 | PC.NURSE ---
2009 Pt comes out of room stating pt is very SOA. On assessment, pt o2 is 98% on RA. Pt sts
--- NOTE | 2023-11-08 20:21 | PC.NURSE ---
Addendum entered by Ann-Marie Rod RN 11/08/23 20:26: 2019 Switchboard notified this RN that they left a message with Jass Original Note: 2009 Pt comes out of room stating pt is very SOA. On assessment, pt o2 is 98% on RA. Pt states she feels like she cannot catch her breath and chest is very tight. Pt states she is having mid sternal chest pain rating it 4/10. Pt states she feels like it radiates down to top of abdomen and she feels bloated. Bp rechecked 173/111. 2012 Angie Copeland notified of pt complaints and vitals. States to call and notify Jass. 2014 Paged Jass at this time.
--- NOTE | 2023-11-08 21:06 | ECG_ITS ---
APPROVED REPORT Exam: Resting ECG HR:65 bpm ECG Measurements Heart Rate 65 AXES KS 161 P -10 QRSd 101 QRS 1 QT 512 T 174 QTc 523 Conclusion SINUS RHYTHM POSSIBLE ANTERIOR MYOCARDIAL INFARCTION , OF INDETERMINATE AGE [30 ms Q WAVE IN V3/V4, OR R < 0.2 mV IN V4] MODERATE T-WAVE ABNORMALITY, CONSIDER LATERAL ISCHEMIA [-0.1+ mV T-WAVE IN I/aVL/V5/V6] MODERATE T-WAVE ABNORMALITY, CONSIDER INFERIOR ISCHEMIA [-0.1+ mV T-WAVE IN II/aVF] ABNORMAL ECG UNCONFIRMED REPORT Electronically signed by : Denver Torres MD 11/12/2023 12:26:17
[2023-11-08] MEDS: ATORVASTATIN 40MG TABLET 40 MG PO (21:40)
[2023-11-08] MEDS: HYDRALAZINE 10MG TABLET 10 MG PO (21:40)
[2023-11-08] MEDS: NITROPRUSSIDE SODIUM 50 MG in DEXTROSE 5 % IN WATER 250 ML 7.82000000000000028 MG IV (22:17)
[2023-11-09] VITALS (34 sets, daily range): BP systolic 113–178; BP diastolic 10–111; PULSE 55–104; RESP 12–24; TEMP 36.6–36.8; O2SAT 92–98; BMI 29.8
[2023-11-09] MEDS: ACETAMINOPHEN 325MG TAB 650 MG PO (03:52)
--- NOTE | 2023-11-09 05:36 | PC.NURSE ---
Pt has c/o intermittent chest pain t/o night rating it the highest 4/10. Pt agreed to take tylenol 1x but has refused morphine and nitro tabs t/o night. Nipride gtt infusing at 0.5mcg/kg/min. Titrated for SBP upper 140s-160. Pt has been mildly bradycardic with HR upper 50s/60s. Pt has been ambulating to BR with standby assist from . Call light within reach.
[2023-11-09] MEDS: NITROGLYCERIN 0.4MG SL TABLET 0.400000000000000022 MG SL (05:47)
--- NOTE | 2023-11-09 06:51 | EXP.PN ---
Subjective *Date: 11/09/23 *Time: 06:51 Interval history: Patient with intermittent pain throughout the evening. Blood pressure uncontrolled requiring nitroprusside drip. Repeat EKG this morning with deep T wave inversion. Despite morphine and nitro, patient still has pain in the central part of her chest that is pressure-like in nature. Dr. Regan messaged regarding continued pain and repeat EKG. Exam Data for Last 24 hours Vital signs and Labs for Last 24 Hours: Temp Pulse Resp BP Pulse Ox O2 Del Method 98.0 F 64 18 131/79 94 L Room Air 11/09/23 04:00 11/09/23 06:00 11/09/23 06:00 11/09/23 06:15 11/09/23 06:00 11/09/23 06:21 Laboratory Results - last 24 hr 11/08/23 06:03: Troponin I 0.02, Serum HCG, Qual Negative 11/08/23 08:47: Troponin I 0.21 H 11/08/23 11:14: Activated Clotting Time 252 H* I & O for Last 24 hours: Intake & Output 11/06/23 11/07/23 11/08/23 11/09/23 23:59 23:59 23:59 23:59 Intake Total 240 / 240 83.531 / 83.531 Output Total 500 / 500 0 / 0 Balance -260 / -260 83.531 / 83.531 Weight 86.183 kg 86.183 kg
[2023-11-09 07:02] LABS: Alanine Aminotransferase 34 U/L (12-78); Albumin Level 3.9 g/dl (3.5-5.0); Albumin/Globulin Ratio 1.3 (1.1-1.8); Alkaline Phosphatase 80 U/L (38-126); Aspartate Amino Transferase 153 U/L (14-36); Bilirubin,Total 0.5 mg/dl (0.2-1.3); Blood Urea Nitrogen 3 mg/dl (7-17); Calcium 9.3 mg/dl (8.4-10.2); Carbon Dioxide 24 mmol/L (22.0-30.0); Chloride 104 mmol/L (98-107); Cholesterol 227 mg/dl (140-200); Creatinine Clearance Estimated 163 mL/min (50-200); Estimated Glomerular Filt Rate 109 ml/min (>60); GFR (African American) 131 ML/MIN (>60); Glucose 103 mg/dl (74-100); HDL Cholesterol 38 mg/dl (40-60); Magnesium 1.8 mg/dl (1.6-2.3); Sodium 136 mmol/L (136-145); Total Protein,Serum 6.9 g/dl (6.3-8.2); Triglycerides 157 mg/dl (30-150); VLDL Cholesterol 31 mg/dL (0-40)
[2023-11-09 07:10] LABS: Basophils # 0.1 K/mm3 (0-0.2); Basophils % 0.4 % (0.1-2.0); Eosinophils # 0.1 K/mm3 (0.0-0.4); Eosinophils % 0.8 % (0.1-12.0); Hematocrit 38.6 % (37.0-47.0); Hemoglobin 12.4 g/dL (12.2-16.2); Lymphocytes # 3.1 K/mm3 (0.7-4.5); Lymphocytes % 17.8 % (10-50); Mean Corpuscular HGB Conc 32.1 g/dL (31.8-35.4); Mean Corpuscular Volume 68.5 fl (81-99); Monocytes # 1.1 K/mm3 (0.1-1.0); Monocytes % 6.3 % (1.7-9.3); Neutrophils % 74.7 % (37.0-80.0); Platelet Count 425 K/mm3 (142-424); Red Blood Count 5.63 M/mm3 (4.20-5.40); Red Cell Distribution Width 18.6 % (11.5-17.5); White Blood Count 17.4 K/mm3 (4.8-10.8)
[2023-11-09 07:13] LABS: Direct LDL Cholesterol 143.92 mg/dL (100-129)
[2023-11-09 07:18] LABS: MANUAL DIFFERENTIAL MANUAL DIFFERENTIAL (MANUAL DIFF)
[2023-11-09 07:53] LABS: Anion Gap 11.2 mEq/L (5-15); Potassium 3.2 mmoL/L (3.5-5.1)
[2023-11-09 08:26] LABS: Eosinophils % 1 % (0-3); Lymphocytes % 14 % (10-50); Monocytes % 5 % (2-9); Neutrophils % 76 % (42-76); Total Cells Counted 100
[2023-11-09 08:29] LABS: Anisocytosis 1+; Microcytosis 1+; Platelet Estimate Normal
[2023-11-09 08:32] LABS: Hypochromasia 1+
[2023-11-09] MEDS: IRBESARTAN 300MG TABLET 300 MG PO (08:48)
[2023-11-09] MEDS: MAGNESIUM SULFATE IN WATER 2 GM/50 ML PIGGYBACK IV (08:48)
[2023-11-09] MEDS: SPIRONOLACTONE 25MG TABLET 25 MG PO (08:48)
[2023-11-09] MEDS: PRASUGREL 10MG TAB 10 MG PO (09:05)
[2023-11-09] MEDS: ASPIRIN EC 81MG TABLET 81 MG PO (09:05)
[2023-11-09] MEDS: POTASSIUM CHLORIDE 10 MEQ, LIDOCAINE HCL/PF 3 ML in 0.9 % SODIUM CHLORIDE 100 ML 108 MEQ IV ×3 (11:09→13:28)
--- NOTE | 2023-11-09 11:43 | PC.NURSE ---
1132 Dr Regan at bedside with Jose G PATEL at this time. new parameters received from Dr Regan for sys bp goal to be 120
--- NOTE | 2023-11-09 13:34 | EXP.CARD.PN ---
Subjective Subjective Date: 11/09/23 Time: 10:00 Interval history: Patient started on nitroprusside drip overnight due to elevated blood pressure. She has ongoing mild chest pain following her cath. Labs are stable. Exam Data for Last 24 hours Vital signs and Labs for Last 24 Hours: Temp Pulse Resp BP Pulse Ox O2 Del Method 98.0 F 66 20 147/102 H 98 Room Air 11/09/23 04:00 11/09/23 13:00 11/09/23 13:00 11/09/23 13:00 11/09/23 13:00 11/09/23 13:00 Laboratory Results - last 24 hr 11/08/23 11:14: Activated Clotting Time 252 H* 11/09/23 05:45: WBC 17.4 H D, RBC 5.63 H, Hgb 12.4, Hct 38.6, MCV 68.5 L, MCH 22.0 L, MCHC 32.1, RDW 18.6 H, Plt Count 425 H, MPV 8.0, Neut % (Auto) 74.7, Lymph % (Auto) 17.8, [place] % (Auto) 6.3, Eos % (Auto) 0.8, Baso % (Auto) 0.4, Neut # (Auto) 13.0 H, Lymph # (Auto) 3.1, [place] # (Auto) 1.1 H, Eos # (Auto) 0.1, Baso # (Auto) 0.1, Total Counted 100, Neutrophils % (Manual) 76, Band Neutrophils % 4.0, Lymphocytes % (Manual) 14, Monocytes % (Manual) 5, Eosinophils % (Manual) 1, Platelet Estimate Normal, Hypochromasia 1+, Anisocytosis 1+, Microcytosis 1+, Sodium 136, Potassium 3.2 L, Chloride 104, Carbon Dioxide 24, Anion Gap 11.2, BUN 3 L D, Creatinine 0.60 D, Estimated Creat Clear 163, Estimated GFR 109, Est GFR ( Amer) 131 D, Glucose 103 H, Calcium 9.3, Magnesium 1.8, Total Bilirubin 0.5, AST 153 H D, ALT 34 D, Alkaline Phosphatase 80, Total Protein 6.9, Albumin 3.9, Globulin 3.0, Albumin/Globulin Ratio 1.3, Triglycerides 157 H, Cholesterol 227 H, LDL Cholesterol Direct 143.92 H, VLDL Cholesterol 31, HDL Cholesterol 38 L, Cholesterol/HDL Ratio 6.0 H I & O for Last 24 hours: Intake & Output 11/06/23 11/07/23 11/08/23 11/09/23 23:59 23:59 23:59 23:59 Intake Total 240 / 240 1364.990 / 1364.990 Output Total 500 / 500 600 / 600 Balance -260 / -260 764.990 / 764.990 Weight 190 lb 190 lb Constitutional Constitutional: no acute distress and cooperative *Routine HEENT Exam Eye: Present PERRL *Routine Respiratory Exam Respiratory: Present CTA bilaterally; Absent accessory muscle use, wheezes or crackles *Routine Cardiovascular Exam Cardiovascular: Present RRR, Normal S1 and Normal S2; Absent murmur, gallop or rubs Comments: Right radial cath site normal on inspection and palpation *Routine Abdominal Exam Abdominal: Present soft; Absent tenderness *Routine Extremities Exam Extremities: Present pulses intact; Absent cyanosis or edema *Routine Skin Exam Skin: Present intact; Absent erythema or wounds *Routine Neurological Exam Neurological: Present alert and oriented X3 Routine Psychiatric Exam Psychiatric: Present cooperative Progress Note: A&P Assessment and plan (1) NSTEMI (non-ST elevated myocardial infarction): Status: Acute (2) Hypertensive emergency: Status: Acute (3) Tobacco use: Status: Acute (4) Chest pain: Status: Acute Assessment and Plan Assessment and Plan for All Diagnoses:: 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 - new dx this admission but symptoms of CP and Htn for months - [facility] here shows severe diffuse MV-CAD but only obstructive lesions were in LAD and stented successfully - start DAPT, BB, Statin - BP control - Goal LDL <55 - avoid tob HFrEF, Ischemic Cardiomyopathy - awaiting final ECHO read - cont BP control, further plans pending official read Htn Emergency - BP 240 with chest pain, on no meds at home - add ARB, BB, MRA - goal <170s prior to DC - renal duplex here is normal - cont Ntg drip PRN to maintain BP 120s - change Irbesartan to Entresto tomorrow HLD - LDL 147, start Atorvastatin 80mg daily Tob - Recommend complete/permanent cessation, pt agreeable 11/08: Pt continues to have mild CP post cath which is secondary to arterial stretch during procedure. She will need to stay for several days for telemetry monitoring and to ensure stable and well controlled BP prior to discharge. Further plans pending ECHO results.
[2023-11-09] MEDS: NITROPRUSSIDE SODIUM 50 MG in DEXTROSE 5 % IN WATER 250 ML 20.8500000000000014 MG IV (17:02)
[2023-11-09] MEDS: DOCUSATE SODIUM 100 MG CAPSULE PO ×2 (17:02→21:07)
--- NOTE | 2023-11-09 17:55 | EXP.PN ---
Subjective *Date: 11/09/23 *Time: 17:55 Interval history: patient seen at bedside, denied CP, SOB, no acute events overnight Exam Data for Last 24 hours Vital signs and Labs for Last 24 Hours: Temp Pulse Resp BP Pulse Ox O2 Del Method 98.0 F 71 14 122/86 96 Room Air 11/09/23 04:00 11/09/23 17:30 11/09/23 17:30 11/09/23 17:30 11/09/23 17:30 11/09/23 17:30 Laboratory Results - last 24 hr 11/09/23 05:45: WBC 17.4 H D, RBC 5.63 H, Hgb 12.4, Hct 38.6, MCV 68.5 L, MCH 22.0 L, MCHC 32.1, RDW 18.6 H, Plt Count 425 H, MPV 8.0, Neut % (Auto) 74.7, Lymph % (Auto) 17.8, [place] % (Auto) 6.3, Eos % (Auto) 0.8, Baso % (Auto) 0.4, Neut # (Auto) 13.0 H, Lymph # (Auto) 3.1, [place] # (Auto) 1.1 H, Eos # (Auto) 0.1, Baso # (Auto) 0.1, Total Counted 100, Neutrophils % (Manual) 76, Band Neutrophils % 4.0, Lymphocytes % (Manual) 14, Monocytes % (Manual) 5, Eosinophils % (Manual) 1, Platelet Estimate Normal, Hypochromasia 1+, Anisocytosis 1+, Microcytosis 1+, Sodium 136, Potassium 3.2 L, Chloride 104, Carbon Dioxide 24, Anion Gap 11.2, BUN 3 L D, Creatinine 0.60 D, Estimated Creat Clear 163, Estimated GFR 109, Est GFR ( Amer) 131 D, Glucose 103 H, Calcium 9.3, Magnesium 1.8, Total Bilirubin 0.5, AST 153 H D, ALT 34 D, Alkaline Phosphatase 80, Total Protein 6.9, Albumin 3.9, Globulin 3.0, Albumin/Globulin Ratio 1.3, Triglycerides 157 H, Cholesterol 227 H, LDL Cholesterol Direct 143.92 H, VLDL Cholesterol 31, HDL Cholesterol 38 L, Cholesterol/HDL Ratio 6.0 H I & O for Last 24 hours: Intake & Output 11/06/23 11/07/23 11/08/23 11/09/23 23:59 23:59 23:59 23:59 Intake Total 240 / 240 931 / Output Total 500 / 500 600 / 600 Balance -260 / -260 1404.931 / 1404.931 Weight 86.183 kg 86.183 kg Constitutional Constitutional: no acute distress *Routine HEENT Exam Head: Present normocephalic Eye: Present EOMI and PERRL ENT: Present mucous membranes moist *Routine Neck Exam Neck: Present supple; Absent lymphadenopathy *Routine Respiratory Exam Respiratory: Present CTA bilaterally *Routine Cardiovascular Exam Cardiovascular: Present RRR *Routine Abdominal Exam Abdominal: Present soft and normoactive bowel sounds; Absent tenderness *Routine Extremities Exam Extremities: Absent cyanosis, clubbing or edema *Routine Skin Exam Skin: Present warm; Absent rash *Routine Neurological Exam Neurological: Present alert and oriented X3 Assessment and Plan *Assessment and plan (1) NSTEMI (non-ST elevated myocardial infarction): Status: Acute Category: Medical Code(s): I21.4 - Non-ST elevation (NSTEMI) myocardial infarction (2) Hypertensive emergency: Status: Acute Category: Medical Code(s): I16.1 - Hypertensive emergency (3) Tobacco use: Status: Acute Category: Social Hx Code(s): Z72.0 - Tobacco use (4) Chest pain: Status: Acute Category: Medical Code(s): R07.9 - Chest pain, unspecified Plan Ms. Frazier is a 43-year-old female who presented with chest pain. Found to have NSTEMI. Taken urgently to the Product/Industry Consultant from the ER, had critical stenosis of proximal LAD. Status post 1 stent. Discussed case with cardiology in the ER physicians. Request admission for further management and monitoring for at least 48 hours post cath in the setting of critical proximal LAD lesion. Medicine agreed to admit. CAD status post NSTEMI with drug-eluting stent on 11/07 Hypertension -Cardiology consulted, patient taken for left heart cath. Had critical stenosis of proximal LAD. Successfully stented with 1 stent. Initial Trop 0.02, repeat 0.2. EKG personally reviewed showing Wellen sign and anterior and inferior leads -Will continue dual antiplatelet therapy with aspirin 81 mg daily and Effient 10 mg daily -Lipid panel pending, initiate Lipitor 40 mg nightly -Initiate irbesartan 300 mg daily. Received 250 mg once today. Blood pressure still elevated, will initiate clonidine 0.1 mg for blood pressure above 180 -Holding on beta-blockers patient's heart rate is in the low 50s -Screen for diabetes and hypothyroid, TSH 2.4, A1c 5.1 -Patient smokes heavily, discussed need to avoid tobacco products -Pending response to blood pressure medication, may need renal artery duplex as an outpatient. -Repeat CBC, CMP, magnesium ordered for the morning -Echo pending -Continue sublingual nitro as needed for chest pain. Related to hypertension. - Anticipate improvement with addressing blood pressure Tobacco use disorder: Nicotine patch 21 mg as needed daily. Counseled on benefits of cessation and need to stop smoking given severe coronary artery disease at the age of 43. Smokes a pack a day. Family states understanding. Full code Cardiac diet Heparinized and Product/Industry Consultant Will monitor for 48 hours post cath. Continue telemetry continue to monitor on cardiac telemetry
[2023-11-09] MEDS: ATORVASTATIN 40MG TABLET 80 MG PO (21:07)
[2023-11-10] VITALS (20 sets, daily range): BP systolic 111–161; BP diastolic 70–115; PULSE 57–84; RESP 12–20; TEMP 36.3–36.8; O2SAT 93–99; BMI 31.4
--- NOTE | 2023-11-10 01:46 | ECG_ITS ---
APPROVED REPORT Exam: Resting ECG HR:83 bpm ECG Measurements Heart Rate 83 AXES WI 148 P -19 QRSd 97 QRS -43 QT 456 T 146 QTc 495 Conclusion SINUS RHYTHM LEFT AXIS DEVIATION [QRS AXIS < -30] LEFT VENTRICULAR HYPERTROPHY AND ST-T CHANGE [VOLTAGE CRITERIA PLUS ST/T ABNORMALITY] ANTEROSEPTAL MYOCARDIAL INFARCTION , PROBABLY RECENT [40+ ms Q WAVE IN V1-V4] ACUTE [place] UNCONFIRMED REPORT Electronically signed by : Denver Torres MD 11/12/2023 12:25:57
--- NOTE | 2023-11-10 02:24 | ECG_ITS ---
APPROVED REPORT Exam: Resting ECG HR:70 bpm ECG Measurements Heart Rate 70 AXES SC 177 P 4 QRSd 150 QRS -55 QT 477 T 123 QTc 498 Conclusion SINUS RHYTHM LEFT AXIS DEVIATION [QRS AXIS < -30] LEFT BUNDLE BRANCH BLOCK [120+ ms QRS DURATION, 80+ ms Q/S IN V1/V2, 85+ ms R IN I/aVL/V5/V6] ABNORMAL ECG UNCONFIRMED REPORT Electronically signed by : Denver Torres MD 11/12/2023 12:25:54
--- NOTE | 2023-11-10 02:38 | PC.NURSE ---
At approximately 02:15, I walked in to find the patient sitting at the side of the bed attempting to go to the bathroom. She was SOA and complaining of headache and nausea. While attempting to reconnect telemetry, blood pressure, and pulse oximetry the patient began to become lethargic and unable to hold her head upright. She began to lose consciousness and fell back on the bed. I couldn't palpate a pulse and called a code Blue. I began chest compressions on the patient and she started to become responsive during compressions. After 10-15 seconds of compressions the patient began to become alert and CPR was stopped. Response personnel arrived and obtained an EKG, administed 500mL fluid bolus and contacted Cardiology.
--- NOTE | 2023-11-10 02:39 | EXP.EVENT.NO ---
Patient with noted rhythm changes monitor. Repeat EKG obtained and notable for changes in lead to [address] inversion in lead II. After EKG obtained, this provider went to the bedside to check on patient and patient stated that her pain was improved since yesterday and felt reasonably okay. Shortly after, patient got up to go to the restroom and became unresponsive. Chest compressions started but patient had improvement in mental status with spontaneous ROSC. At the time of event, patient diaphoretic and pale with reported nausea. Dr. Regan notified, repeat EKG obtained with noted bundle branch block. Nitroprusside stopped. Blood pressure systolic in the 120s with rhythm back to patient's baseline. Instructed to give 500 cc bolus, repeat echocardiogram in a.m. and hold irbesartan for the morning. Low threshold to repeat EKG and repeat cardiology page.
--- NOTE | 2023-11-10 04:09 | ECG_ITS ---
APPROVED REPORT Exam: Resting ECG HR:67 bpm ECG Measurements Heart Rate 67 AXES [place] 179 P -8 QRSd 102 QRS -42 QT 488 T 142 QTc 504 Conclusion SINUS RHYTHM LEFT VENTRICULAR HYPERTROPHY AND ST-T CHANGE [VOLTAGE CRITERIA PLUS ST/T ABNORMALITY] ANTERIOR MYOCARDIAL INFARCTION , PROBABLY RECENT [40+ ms Q WAVE AND/OR ST/T ABNORMALITY IN V3/V4] INFERIOR MYOCARDIAL INFARCTION , OF INDETERMINATE AGE [40+ ms Q WAVE AND/OR ST/T ABNORMALITY IN II/aVF] ACUTE [place] UNCONFIRMED REPORT Electronically signed by : Denver Torres MD 11/12/2023 12:25:51
--- NOTE | 2023-11-10 06:00 | CA_ITS ---
APPROVED REPORT EXAM: Limited 2D Echocardiogram with contrast Four Roll Calender Operator: Sparkle Gamino CRT Ht: 5 ft 6 in Wt: 190lbs BSA: 1.96 BP: 122/86 mmHg Indications: CAD, Hypertension/HDD, NSTEMI, stents 11-08-23, smoker, stents 11-08-23 definity given Echo Enhancing Agent Indication: Endocardial border delineation Agent(s) / Amount(s) Used: Definity 2 cc M-Mode Dimensions RVDd 3.01 cm (0.9-2.6) LVDd 4.41 cm (3.5-5.7) LVDs 3.14 cm (3.5-5.7) IVSd 1.83 cm (0.6-1.1) PWd 0.99 cm (0.6-1.1) EF (Teich) 55.70% FS 28.80% EDV (Teich) 88.20 mL ESV (Teich) 39.10 mL Other Information Study Quality: Fair Conclusion This is a limited TTE to evaluate for LVEF in the setting of recent syncopal episode during hospitalization after PCI. Limited windows were obtained. Ultrasound enhancing agent is administered. The left ventricle is normal in size. There is increased LV wall thickness. There is near akinesis of the LV apex. No LV thrombus is visualized following administration of ultrasound enhancing agent. LVEF is 55%. No pericardial effusions are visualized. Transvalvular color and spectral Doppler are not performed in the study. Compared to prior study from 2 days prior on 11/08/2023, no significant changes are noted. Electronically signed by : Angelia Hwang MD 11/10/2023 09:11:18
--- NOTE | 2023-11-10 06:02 | P.EN_ITS ---
Around 2:15 AM I was called upstairs to a CODE BLUE. Patient reportedly was attempting to get out of bed to use the restroom and had a syncopal event with brief asystole. When I arrived upstairs, patient was awake, initial blood pressure was systolic of 49, patient was alert and talking to me with palpable radial pulse but pale, diaphoretic, ill-appearing. No focal neurologic defici ts. I stopped the nitroprusside drip and requested fluid bolus. I personally interpreted patient's most recent EKG which had demonstrated slight changes in the inferior leads from previous but nothing meeting criteria for STEMI. I verbally ordered stat repeat EKG. Repeat blood pressure on the patient demonstrated a systolic in the 120s, patient stated she was feeling better. Patient reported to me that she was having mild central chest pain, however it was stable from previous. I stayed with the patient and monitored her for repeat EKG was performed. On my personal interpretation it demonstrated sinus rhythm, rate 78, left axis deviation, new left bundle branch block, patient was also having abnormal changes in the anteroseptal leads concerning for dynamic changes and possible ischemia however they do not meet criteria for STEMI. Dr. Regan was consulted by phone regarding patient's episode as well as EKG. He reviewed the EKG and wants repeat echo but no acute cardiac intervention at this time. He agrees with fluid bolus but only recommends 500 mL. Review of recent records demonstrates patient had cardiac catheterization with critical LAD stenosis. She also has moderate CAD which does increase her risk of having other acute cardiac event. Also reviewed previous EKGs from earlier today for comparison which allowed me to appreciate the dynamic changes on her EKG tonight. Patient's blood pressure continued to improve with systolics in the 130s. She stated she was not feeling dizzy or lightheaded like she was before she syncopized. I did not perform any other interventions on the patient. HAYDEE for the patient and I discussed continued monitoring and plans for repeat EKG. She will call me with any other acute abnormalities on the patient. Repeat EKG a few hours after the event on my personal interpretation demonstrates improvement in ST elevations in the anteroseptal leads, improvement in QRS widening without findings of left bundle branch block. Patient continued to be in normal sinus rhythm with rate 67 and left axis deviation. She has not had any other critical events. Critical care: On 11/10/2023, the high probability of a clinically significant, sudden or life threatening deterioration of the following system(s) (cardiac) required my full and direct attention, intervention and personal management. The time I documented below is in addition to time spent performing reported procedures but includes the following listed in this critical care notation. Critical care time: 35 minutes
[2023-11-10] MEDS: DEFINITY US ECHO CONTRAST 2ML INJ 2 MG IV (07:55)
--- NOTE | 2023-11-10 08:30 | PC.NURSE ---
All documentation and care provided by Blank HICKMAN was completed under my direct supervision. Suzie Mayes RN
[2023-11-10] MEDS: PRASUGREL 10MG TAB 10 MG PO (08:44)
[2023-11-10] MEDS: ASPIRIN EC 81MG TABLET 81 MG PO (08:44)
[2023-11-10] MEDS: SPIRONOLACTONE 25MG TABLET 25 MG PO (08:44)
[2023-11-10] MEDS: DOCUSATE SODIUM 100 MG CAPSULE PO ×2 (08:48→21:13)
[2023-11-10 10:29] LABS: Basophils # 0.1 K/mm3 (0-0.2); Basophils % 0.8 % (0.1-2.0); Eosinophils # 0.2 K/mm3 (0.0-0.4); Eosinophils % 1.7 % (0.1-12.0); Hematocrit 38.9 % (37.0-47.0); Hemoglobin 12.4 g/dL (12.2-16.2); Lymphocytes # 3.1 K/mm3 (0.7-4.5); Lymphocytes % 22.9 % (10-50); Mean Corpuscular HGB Conc 31.8 g/dL (31.8-35.4); Mean Corpuscular Hemoglobin 21.9 pg (27.0-31.2); Mean Corpuscular Volume 68.7 fl (81-99); Mean Platelet Volume 8.4 fl (7.4-10.4); Monocytes % 7.6 % (1.7-9.3); Neutrophils % 67.1 % (37.0-80.0); Platelet Count 412 K/mm3 (142-424); Red Blood Count 5.66 M/mm3 (4.20-5.40); Red Cell Distribution Width 18.4 % (11.5-17.5); White Blood Count 13.4 K/mm3 (4.8-10.8)
[2023-11-10 10:42] LABS: Carbon Dioxide 26 mmol/L (22.0-30.0); Chloride 105 mmol/L (98-107); Glucose 89 mg/dl (74-100); Potassium 3.5 mmoL/L (3.5-5.1)
[2023-11-10 11:01] LABS: Anion Gap 9.5 mEq/L (5-15); Calcium 9.3 mg/dl (8.4-10.2); Sodium 137 mmol/L (136-145)
[2023-11-10 11:05] LABS: Blood Urea Nitrogen 5 mg/dl (7-17); Creatinine Clearance Estimated 129 mL/min (50-200); Estimated Glomerular Filt Rate 78 ml/min (>60); GFR (African American) 94 ML/MIN (>60)
--- NOTE | 2023-11-10 13:04 | EXP.CARD.PN ---
Subjective Subjective Date: 11/10/23 Time: 10:00 Interval history: Patient had severe hypotensive episode upon standing last night and had syncope. Code called and reportedly they lost peripheral pulse and did chest compressions briefly but she reponded immediately. BP per attending physician was 40s systolic. Dr. Regan was called and he reviewed EKG and ordered 500mL NS bolus and limited ECHO. She is asymptomatic this morning with BP in the 130s off of Nitroprusside and Irbesartan. She'e had no arrhythmias on monitor and reportedly unhooked monitor to go to the bathroom at time of the incident. Repeat ECHO shows normal EF and no changes from prior. Exam Data for Last 24 hours Vital signs and Labs for Last 24 Hours: Temp Pulse Resp BP Pulse Ox O2 Del Method 97.8 F 77 18 138/84 97 Room Air 11/10/23 07:40 11/10/23 12:00 11/10/23 12:00 11/10/23 12:00 11/10/23 12:00 11/10/23 12:00 Laboratory Results - last 24 hr 11/10/23 10:20: WBC 13.4 H, RBC 5.66 H, Hgb 12.4, Hct 38.9, MCV 68.7 L, MCH 21.9 L, MCHC 31.8, RDW 18.4 H, Plt Count 412, MPV 8.4, Neut % (Auto) 67.1, Lymph % (Auto) 22.9, [place] % (Auto) 7.6, Eos % (Auto) 1.7, Baso % (Auto) 0.8, Neut # (Auto) 9.0 H, Lymph # (Auto) 3.1, [place] # (Auto) 1.0, Eos # (Auto) 0.2, Baso # (Auto) 0.1, Sodium 137, Potassium 3.5, Chloride 105, Carbon Dioxide 26, Anion Gap 9.5, BUN 5 L D, Creatinine 0.80 D, Estimated Creat Clear 129, Estimated GFR 78, Est GFR ( Amer) 94 D, Glucose 89, Lactate 1.0, Calcium 9.3 I & O for Last 24 hours: Intake & Output 11/07/23 11/08/23 11/09/23 11/10/23 23:59 23:59 23:59 23:59 Intake Total 240 / 240 2031.036 / 175.835 / 175.835 Output Total 500 / 500 600 / 600 400 / 400 Balance -260 / -260 1432.036 / 1432.036 -224.165 / -224.165 Weight 190 lb 190 lb 199 lb 15.348 oz Constitutional Constitutional: no acute distress and cooperative *Routine HEENT Exam Eye: Present PERRL *Routine Respiratory Exam Respiratory: Present CTA bilaterally; Absent accessory muscle use, wheezes or crackles *Routine Cardiovascular Exam Cardiovascular: Present RRR, Normal S1 and Normal S2; Absent murmur, gallop or rubs *Routine Abdominal Exam Abdominal: Present soft; Absent tenderness *Routine Extremities Exam Extremities: Present pulses intact; Absent cyanosis or edema *Routine Skin Exam Skin: Present intact; Absent erythema or wounds *Routine Neurological Exam Neurological: Present alert and oriented X3 Routine Psychiatric Exam Psychiatric: Present cooperative Progress Note: A&P Assessment and plan (1) NSTEMI (non-ST elevated myocardial infarction): Status: Acute (2) Hypertensive emergency: Status: Acute (3) Tobacco use: Status: Acute (4) Chest pain: Status: Acute (5) Syncope: Status: Acute (6) Iatrogenic hypotension: Status: Acute Assessment and Plan Assessment and Plan for All Diagnoses:: 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 Cardiac rehab at discharge. Iatrogenic Hypotension with Orthostasis and Syncope - occurred evening of 11/09 upon standing to go to the bathroom. Pt was on Nitroprusside at the time. - stable off Nitroprusside and Irbesartan. - cont to monitor BP and I encouraged PO intake Htn Emergency - BP 240 with chest pain on arriva, on no meds at home - add ARB, BB, MRA - goal <170s prior to DC - renal duplex here is normal - initially on Nitroprusside drip, now on hold post stenting due to hypotensive episode 11/09 HLD - LDL 147 - Cont Atorvastatin 80mg daily Tob - Recommend complete/permanent cessation, pt agreeable Recommend another 24 observation so we can assess BP and ensure some stability prior to DC.
--- NOTE | 2023-11-10 13:11 | PC.NURSE ---
pt requested to go to restroom this afternoon. pt ambulated to bathroom x1 assist. pt denied SOB,dizziness, or tunnel vision during and after ambulation. pt tolerated ambulation well. pt has no complaints. call reis within reach.
--- NOTE | 2023-11-10 14:55 | PC.NURSE ---
1406 attempted to call [facility]- no answer 1420-attempted to call [facility]- no answer 1430- Called Jose G Banks, notified provider that pt bp has remained stable this shift. pt sys has remained 110-130's. pt denies dizziness or vision changes as well. Does provider want pt to remain ICU. per jose g it is ok for pt to transfer to [facility], encourage pt to ambulate and to eat and drink normally. monitor bp for htn. start irbesartan 75mg po daily.
[2023-11-10] MEDS: IRBESARTAN 75MG TABLET 75 MG PO (16:09)
--- NOTE | 2023-11-10 17:05 | EXP.PN ---
Subjective *Date: 11/10/23 *Time: 17:05 Interval history: patient seen at bedside, denied CP, SOB, acute events overnight noted with drop in BP and syncope Exam Data for Last 24 hours Vital signs and Labs for Last 24 Hours: Temp Pulse Resp BP Pulse Ox O2 Del Method 97.4 F L 57 L 18 147/92 H 96 Room Air 11/10/23 12:00 11/10/23 15:48 11/10/23 15:48 11/10/23 15:48 11/10/23 15:48 11/10/23 16:52 Laboratory Results - last 24 hr 11/10/23 10:20: WBC 13.4 H, RBC 5.66 H, Hgb 12.4, Hct 38.9, MCV 68.7 L, MCH 21.9 L, MCHC 31.8, RDW 18.4 H, Plt Count 412, MPV 8.4, Neut % (Auto) 67.1, Lymph % (Auto) 22.9, [place] % (Auto) 7.6, Eos % (Auto) 1.7, Baso % (Auto) 0.8, Neut # (Auto) 9.0 H, Lymph # (Auto) 3.1, [place] # (Auto) 1.0, Eos # (Auto) 0.2, Baso # (Auto) 0.1, Sodium 137, Potassium 3.5, Chloride 105, Carbon Dioxide 26, Anion Gap 9.5, BUN 5 L D, Creatinine 0.80 D, Estimated Creat Clear 129, Estimated GFR 78, Est GFR ( Amer) 94 D, Glucose 89, Lactate 1.0, Calcium 9.3 I & O for Last 24 hours: Intake & Output 11/07/23 11/08/23 11/09/23 11/10/23 23:59 23:59 23:59 23:59 Intake Total 240 / 240 2032.036 / 2032.036 895.835 / 895.835 Output Total 500 / 500 600 / 600 400 / 400 Balance -260 / -260 1432.036 / 1432.036 495.835 / 495.835 Weight 86.183 kg 86.183 kg 90.7 kg Constitutional Constitutional: no acute distress *Routine HEENT Exam Head: Present normocephalic Eye: Present EOMI and PERRL ENT: Present mucous membranes moist *Routine Neck Exam Neck: Present supple; Absent lymphadenopathy *Routine Respiratory Exam Respiratory: Present CTA bilaterally *Routine Cardiovascular Exam Cardiovascular: Present RRR *Routine Abdominal Exam Abdominal: Present soft and normoactive bowel sounds; Absent tenderness *Routine Extremities Exam Extremities: Absent cyanosis, clubbing or edema *Routine Skin Exam Skin: Present warm; Absent rash *Routine Neurological Exam Neurological: Present alert and oriented X3 Assessment and Plan *Assessment and plan (1) NSTEMI (non-ST elevated myocardial infarction): Status: Acute Category: Medical Code(s): I21.4 - Non-ST elevation (NSTEMI) myocardial infarction (2) Hypertensive emergency: Status: Acute Category: Medical Code(s): I16.1 - Hypertensive emergency (3) Tobacco use: Status: Acute Category: Social Hx Code(s): Z72.0 - Tobacco use (4) Chest pain: Status: Acute Category: Medical Code(s): R07.9 - Chest pain, unspecified Plan Ms. Frazier is a 43-year-old female who presented with chest pain. Found to have NSTEMI. Taken urgently to the Oil Well Service Operator from the ER, had critical stenosis of proximal LAD. Status post 1 stent. Discussed case with cardiology in the ER physicians. Request admission for further management and monitoring for at least 48 hours post cath in the setting of critical proximal LAD lesion. Medicine agreed to admit. CAD status post NSTEMI with drug-eluting stent on 11/07 Hypertension -Cardiology consulted, patient taken for left heart cath. Had critical stenosis of proximal LAD. Successfully stented with 1 stent. -Will continue dual antiplatelet therapy with aspirin 81 mg daily and Effient 10 mg daily Tobacco use disorder: Nicotine patch 21 mg as needed daily. Counseled on benefits of cessation and need to stop smoking given severe coronary artery disease at the age of 43. Smokes a pack a day. Family states understanding. Full code Cardiac diet Heparinized and Oil Well Service Operator Will monitor for 48 hours post cath. Continue telemetry continue to monitor on cardiac telemetry, monitor for another 24hrs, limited echo showed near akinesis of LV apex
--- NOTE | 2023-11-10 18:00 | PC.NURSE ---
pt has been ambulating throughout shift. pt's blood pressures have been around 130s over 80s throughout shift. pt stated today that she has been feeling much better since her drip had been turned off. pt has had no complaints throughout the shift. pt still has bundle branch block. lung sounds clear throughout. bowel sounds active x4 quadrants. pt moved from ICU to med/surg status today.
[2023-11-10] MEDS: ATORVASTATIN 40MG TABLET 80 MG PO (21:13)
[2023-11-10] MEDS: ACETAMINOPHEN 325MG TAB 650 MG PO (21:18)
[2023-11-11] VITALS: BP 123/84; PULSE 60; PULSE 69; RESP 17; TEMP 36.8; O2SAT 98
[2023-11-11 04:00] VITALS: BP 117/76; PULSE 60; PULSE 66; RESP 16; TEMP 36.7; O2SAT 97; BMI 31.4
--- NOTE | 2023-11-11 05:45 | PC.NURSE ---
pt rested well this shift, states she is feeling better, BP have been 117/76-139/91, O2 has remained >95% on RA, pt has been NSR on tele with inverted T waves, pt had a headache and was medicated with tylenol per mar, no other complaints this shift, is at bedside, call button is within reach.
[2023-11-11 06:06] LABS: Basophils # 0.1 K/mm3 (0-0.2); Basophils % 0.7 % (0.1-2.0); Eosinophils # 0.4 K/mm3 (0.0-0.4); Eosinophils % 3.7 % (0.1-12.0); Hematocrit 37.4 % (37.0-47.0); Hemoglobin 11.9 g/dL (12.2-16.2); Lymphocytes # 3.2 K/mm3 (0.7-4.5); Lymphocytes % 31.5 % (10-50); Mean Corpuscular HGB Conc 31.7 g/dL (31.8-35.4); Mean Corpuscular Hemoglobin 22.1 pg (27.0-31.2); Mean Corpuscular Volume 69.7 fl (81-99); Mean Platelet Volume 8.7 fl (7.4-10.4); Monocytes # 0.9 K/mm3 (0.1-1.0); Neutrophils # 5.5 K/mm3 (1.8-7.8); Neutrophils % 55.1 % (37.0-80.0); Platelet Count 345 K/mm3 (142-424); Red Blood Count 5.37 M/mm3 (4.20-5.40); Red Cell Distribution Width 18.7 % (11.5-17.5)
[2023-11-11 06:12] LABS: Anion Gap 8.4 mEq/L (5-15); Blood Urea Nitrogen 6 mg/dl (7-17); Calcium 9.1 mg/dl (8.4-10.2); Carbon Dioxide 27 mmol/L (22.0-30.0); Chloride 105 mmol/L (98-107); Creatinine Clearance Estimated 128 mL/min (50-200); Estimated Glomerular Filt Rate 78 ml/min (>60); GFR (African American) 94 ML/MIN (>60); Glucose 84 mg/dl (74-100); Potassium 3.4 mmoL/L (3.5-5.1); Sodium 137 mmol/L (136-145)
[2023-11-11 08:00] VITALS: BP 145/90; PULSE 100; PULSE 73; RESP 21; TEMP 36.7; O2SAT 97
[2023-11-11] MEDS: ASPIRIN EC 81MG TABLET 81 MG PO (08:08)
[2023-11-11] MEDS: PRASUGREL 10MG TAB 10 MG PO (08:08)
[2023-11-11] MEDS: SACUBITRIL/VALSARTAN 24-26MG TABLET 2 EACH PO (08:08)
[2023-11-11] MEDS: SPIRONOLACTONE 25MG TABLET 25 MG PO (08:08)
[2023-11-11] MEDS: IRBESARTAN 75MG TABLET 75 MG PO (08:08)
--- NOTE | 2023-11-11 08:29 | ECG_ITS ---
APPROVED REPORT Exam: Resting ECG HR:71 bpm ECG Measurements Heart Rate 71 AXES CA 166 P -1 QRSd 96 QRS 6 QT 493 T 201 QTc 515 Conclusion SINUS RHYTHM LEFT VENTRICULAR HYPERTROPHY AND ST-T CHANGE [VOLTAGE CRITERIA PLUS ST/T ABNORMALITY] ANTERIOR MYOCARDIAL INFARCTION , PROBABLY RECENT [40+ ms Q WAVE AND/OR ST/T ABNORMALITY IN V3/V4] ACUTE IN UNCONFIRMED REPORT Electronically signed by : Denver Torres MD 11/12/2023 12:24:56
[2023-11-11] MEDS: ACETAMINOPHEN 325MG TAB 650 MG PO (08:40)
--- NOTE | 2023-11-11 11:29 | EXP.CARD.PN ---
Subjective Subjective Date: 11/11/23 Time: 10:00 Interval history: No further chest pain or syncope. BP stable 1-teens to 130s. She is up and ambulating in the halls without symptoms and requesting DC home. Exam Data for Last 24 hours Vital signs and Labs for Last 24 Hours: Temp Pulse Resp BP Pulse Ox O2 Del Method 98.0 F 73 21 145/90 H 97 Room Air 11/11/23 08:00 11/11/23 08:00 11/11/23 08:00 11/11/23 08:00 11/11/23 08:00 11/11/23 11:00 Laboratory Results - last 24 hr 11/08/23 06:03: Hemoglobin A1c 5.1, TSH 2.48 11/11/23 05:24: WBC 10.0 D, RBC 5.37, Hgb 11.9 L, Hct 37.4, MCV 69.7 L, MCH 22.1 L, MCHC 31.7 L, RDW 18.7 H, Plt Count 345, MPV 8.7, Neut % (Auto) 55.1, Lymph % (Auto) 31.5, [place] % (Auto) 9.0, Eos % (Auto) 3.7, Baso % (Auto) 0.7, Neut # (Auto) 5.5, Lymph # (Auto) 3.2, [place] # (Auto) 0.9, Eos # (Auto) 0.4, Baso # (Auto) 0.1, Sodium 137, Potassium 3.4 L, Chloride 105, Carbon Dioxide 27, Anion Gap 8.4, BUN 6 L, Creatinine 0.80, Estimated Creat Clear 128, Estimated GFR 78, Est GFR ( Amer) 94, Glucose 84, Calcium 9.1 I & O for Last 24 hours: Intake & Output 11/08/23 11/09/23 11/10/23 11/11/23 23:59 23:59 23:59 23:59 Intake Total 240 / 240 2032.036 / 2032.036 1375.835 / 1855.835 820 / 820 Output Total 500 / 500 600 / 600 400 / 400 0 / 0 Balance -260 / -260 1432.036 / 1432.036 975.835 / 1455.835 820 / 820 Weight 190 lb 190 lb 199 lb 15.348 oz 199 lb 15.348 oz Constitutional Constitutional: no acute distress and cooperative *Routine HEENT Exam Eye: Present PERRL *Routine Respiratory Exam Respiratory: Present CTA bilaterally; Absent accessory muscle use, wheezes or crackles *Routine Cardiovascular Exam Cardiovascular: Present RRR, Normal S1 and Normal S2; Absent murmur, gallop or rubs Comments: right radial cath site normal on inspection and palpation *Routine Abdominal Exam Abdominal: Present soft; Absent tenderness *Routine Extremities Exam Extremities: Present pulses intact; Absent cyanosis or edema *Routine Skin Exam Skin: Present intact; Absent erythema or wounds *Routine Neurological Exam Neurological: Present alert and oriented X3 Routine Psychiatric Exam Psychiatric: Present cooperative Progress Note: A&P Assessment and plan (1) NSTEMI (non-ST elevated myocardial infarction): Status: Acute (2) Hypertensive emergency: Status: Acute (3) Tobacco use: Status: Acute (4) Chest pain: Status: Acute (5) Syncope: Status: Acute (6) Iatrogenic hypotension: Status: Acute Assessment and Plan Assessment and Plan for All Diagnoses:: 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 Cardiac rehab at discharge. Iatrogenic Hypotension with Orthostasis and Syncope - occurred evening of 11/09 upon standing to go to the bathroom. Pt was on Nitroprusside at the time. - stable off Nitroprusside and reduced dose of Irbesartan - cont to monitor BP and I encouraged PO intake and BID monitoring at home Htn Emergency - BP 240 with chest pain on arriva, on no meds at home - add ARB, BB, MRA - goal <170s prior to DC - renal duplex here is normal - resolved and stable, cont Irbesartan and Aldactone at DC. HLD - LDL 147 - Cont Atorvastatin 80mg daily, repeat FLP 2 mo Tob - Recommend complete/permanent cessation, pt agreeable 11/10: Pt is CV stable and asymptomatic for discharge home. She needs cardiac rehab, 2 week monitor, and a 2 week f/u in our office. CV DC Meds: Aspirin 81 mg 1 p.o. daily Effient 10 mg 1 p.o. daily Atorvastatin 80 mg 1 p.o. nightly Irbesartan 75 mg 1 p.o. daily Spironolactone 25 mg 1 p.o. daily Nicotine transdermal
[2023-11-11 11:45] VITALS: BP 124/82; PULSE 65; RESP 20; TEMP 36.7; O2SAT 98
--- NOTE | 2023-11-11 13:14 | EXP.DC.SUM ---
General Admission date:: 11/08/23 Discharge date: 11/11/23 HPI HPI HPI: Ms. Gilbert is a 43-year-old female who presented from home with complaint of substernal chest pain that began this morning at about 4 AM. Pain rated a 4 out of 10. Has been dealing with high blood pressure for some time but treats it naturally with supplements. Thought she was having some indigestion or heartburn. Denies any carlos emesis, confusion, shortness of breath. Denies having pain or weakness with exertion preceding this. Patient is a longtime smoker, has lost about 40 pounds in the past 6 months. Moved to [place] within the past year from [place]. Workup in the ER with EKG showing Wellen sign. Had slight bump in her troponin; Initial troponin 0.02, repeat troponin 0.21. She was brought in via EMS and found to have systolic blood pressure 240. Chest pain improved with improvement in her blood pressure. When she became hypertensive again, chest pain returned. Cardiology was contacted, patient was taken to the Special Distribution Clerk for treatment of NSTEMI. Medicine consulted after heart cath for admission and further management. Patient found to have critical proximal LAD lesion, status post 1 stent. Started on dual antiplatelet therapy. After arrival to the floor, patient still having some intermittent chest pain, appears to correlate to her elevated blood pressure. She is quite fatigued however. and sons at bedside helps supplement history. Afebrile and on room air Hospital Course Hospital Course Hospital Course: Ms. Frazier is a 43-year-old female who presented with chest pain. Found to have NSTEMI. Taken urgently to the Special Distribution Clerk from the ER, had critical stenosis of proximal LAD. Status post 1 stent. Discussed case with cardiology in the ER physicians. Request admission for further management and monitoring for at least 48 hours post cath in the setting of critical proximal LAD lesion. Medicine agreed to admit. CAD status post NSTEMI with drug-eluting stent on 11/07 Hypertension -Cardiology consulted, patient taken for left heart cath. Had critical stenosis of proximal LAD. Successfully stented with 1 stent. -Will continue dual antiplatelet therapy with aspirin 81 mg daily and Effient 10 mg daily patient was monitored 48hrs post cath - patient tolerated procedure well, patient was encouraged to have oral hydration, patient otherwise denied CP, SOB at time of discharge, patient cleared for dc per cardiology on the following meds CV DC Meds: Aspirin 81 mg 1 p.o. daily Effient 10 mg 1 p.o. daily Atorvastatin 80 mg 1 p.o. nightly Irbesartan 75 mg 1 p.o. daily Spironolactone 25 mg 1 p.o. daily Nicotine transdermal Exam Data for Last 24 hours Vital signs and Labs for Last 24 Hours: Temp Pulse Resp BP Pulse Ox O2 Del Method 98.0 F 65 20 124/82 98 Room Air 11/11/23 11:45 11/11/23 11:45 11/11/23 11:45 11/11/23 11:45 11/11/23 11:45 11/11/23 11:45 Laboratory Results - last 24 hr 11/08/23 06:03: Hemoglobin A1c 5.1, TSH 2.48 11/11/23 05:24: WBC 10.0 D, RBC 5.37, Hgb 11.9 L, Hct 37.4, MCV 69.7 L, MCH 22.1 L, MCHC 31.7 L, RDW 18.7 H, Plt Count 345, MPV 8.7, Neut % (Auto) 55.1, Lymph % (Auto) 31.5, [place] % (Auto) 9.0, Eos % (Auto) 3.7, Baso % (Auto) 0.7, Neut # (Auto) 5.5, Lymph # (Auto) 3.2, [place] # (Auto) 0.9, Eos # (Auto) 0.4, Baso # (Auto) 0.1, Sodium 137, Potassium 3.4 L, Chloride 105, Carbon Dioxide 27, Anion Gap 8.4, BUN 6 L, Creatinine 0.80, Estimated Creat Clear 128, Estimated GFR 78, Est GFR ( Amer) 94, Glucose 84, Calcium 9.1 I & O for Last 24 hours: Intake & Output 11/08/23 11/09/23 11/10/23 11/11/23 23:59 23:59 23:59 23:59 Intake Total 240 / 240 2.036 / 203.036 1375.835 / 1855.835 820 / 820 Output Total 500 / 500 600 / 600 400 / 400 0 / 0 Balance -260 / -260 1432.036 / 1432.036 975.835 / 1455.835 820 / 820 Weight 86.183 kg 86.183 kg 90.7 kg 90.7 kg Constitutional Constitutional: no acute distress *Routine HEENT Exam Head: Present normocephalic Eye: Present EOMI and PERRL ENT: Present mucous membranes moist *Routine Neck Exam Neck: Present supple; Absent lymphadenopathy *Routine Respiratory Exam Respiratory: Present CTA bilaterally *Routine Cardiovascular Exam Cardiovascular: Present RRR *Routine Abdominal Exam Abdominal: Present soft and normoactive bowel sounds; Absent tenderness *Routine Extremities Exam Extremities: Absent cyanosis, clubbing or edema *Routine Skin Exam Skin: Present warm; Absent rash *Routine Neurological Exam Neurological: Present alert and oriented X3 Results Data Completed and Pending Labs on day of discharge: Labs from last 24 hours 11/11/23 11/08/23 05:24 06:03 WBC 10.0 D RBC 5.37 Hgb 11.9 L Hct 37.4 MCV 69.7 L MCH 22.1 L MCHC 31.7 L RDW 18.7 H Plt Count 345 MPV 8.7 Neut % (Auto) 55.1 Lymph % (Auto) 31.5 [place] % (Auto) 9.0 Eos % (Auto) 3.7 Baso % (Auto) 0.7 Neut # (Auto) 5.5 Lymph # (Auto) 3.2 [place] # (Auto) 0.9 Eos # (Auto) 0.4 Baso # (Auto) 0.1 Sodium 137 Potassium 3.4 L Chloride 105 Carbon Dioxide 27 Anion Gap 8.4 BUN 6 L Creatinine 0.80 Estimated Creat Clear 128 Estimated GFR 78 Est GFR ( Amer) 94 Glucose 84 Hemoglobin A1c 5.1 Calcium 9.1 TSH 2.48 DS: Diagnosis Discharge Diagnosis (1) NSTEMI (non-ST elevated myocardial infarction): Status: Acute Code(s): I21.4 - Non-ST elevation (NSTEMI) myocardial infarction (2) Hypertensive emergency: Status: Acute Code(s): I16.1 - Hypertensive emergency (3) Tobacco use: Status: Acute Code(s): Z72.0 - Tobacco use (4) Chest pain: Status: Acute Code(s): R07.9 - Chest pain, unspecified (5) Syncope: Status: Acute Code(s): R55 - Syncope and collapse (6) Iatrogenic hypotension: Status: Acute Code(s): I95.89 - Other hypotension Meds Home Medications and Allergies Home Medications Medication Instructions Recorded Confirmed Type aspirin 81 mg tablet,delayed 81 mg PO DAILY 30 days #30 tabs 11/11/23 Rx release atorvastatin 40 mg tablet 80 mg (2 x 40 mg) PO HS 30 days 11/11/23 Rx #60 tabs docusate sodium 100 mg capsule 100 mg PO BIDP PRN Constipation 30 11/11/23 Rx days #60 caps irbesartan 75 mg tablet 75 mg PO DAILY 30 days #30 tabs 11/11/23 Rx nicotine 21 mg/24 hr daily 21 mg transdermal DAILYP PRN 11/11/23 Rx transdermal patch Nicotine Cravings 30 days #30 ea prasugrel 10 mg tablet 10 mg PO DAILY 30 days #30 tabs 11/11/23 Rx spironolactone 25 mg tablet 25 mg PO DAILY 30 days #30 tabs 11/11/23 Rx New Prescriptions to Start Prescriptions: aspirin Isaiah[facility] irbesartan [facility] nicotine Isaiah,[facility] prasugrel Isaiah,[facility] spironolactone Isaiah,Irfan Allergies Allergy/AdvReac Type Severity Reaction Status Date / Time Gadolinium-Containing Allergy Unknown Verified 11/08/23 05:57 Contrast [facility] Discharge Plan Disposition Patient Disposition: Home, Self-Care Condition: Good Discharge Order Discharge Orders: Discharge Order (Routine); Ordered 11/11/23 Ordered By: Radha Colon Follow up Plan Follow up with: Provider,MD Yonny [Primary Care Provider] - See instructions Curry Hwang MD [Staff Physician] - 11/18/23 2:15 pm Prescriptions/Medication Reconciliation: New atorvastatin 40 mg Tablet 80 mg PO HS 30 Days Qty: 60 0RF aspirin 81 mg Tablet,Delayed Release (Dr/Ec) 81 mg PO DAILY 30 Days Qty: 30 0RF docusate sodium 100 mg Capsule 100 mg PO BIDP PRN (Reason: Constipation) 30 Days Qty: 60 0RF spironolactone 25 mg Tablet 25 mg PO DAILY 30 Days Qty: 30 0RF nicotine 21 mg/24 hr Patch 24 Hour 21 mg transdermal DAILYP PRN (Reason: Nicotine Cravings) 30 Days Qty: 30 0RF irbesartan 75 mg Tablet 75 mg PO DAILY 30 Days Qty: 30 0RF prasugrel 10 mg Tablet 10 mg PO DAILY 30 Days Qty: 30 0RF Problem Reconciliation Problems Reviewed?: Yes Patient Discharge Instructions ACTIVITY: Ambulate as tolerated DIET: continue same diet Patient Instructions: DI for Heart Attack, DI for Cardiac Catheterization, DI for Surgical Site Infection, DI for Coronary Artery Disease Providers Primary Care Provider: Provider,Referral Admit Provider: Ezequiel Fatima Attending Provider: Ezequiel Fatima
--- NOTE | 2023-11-12 11:56 | CARE MANAGER ---
Contacted patient related to hospital discharge. She states she is doing well. She denies questions or concerns and has medications. She is aware of follow up appointments. MICHAEL Carter
== END 2023-11-11 14:35 | disposition home or self-care (01) | DRG 322 ==
LOC: ER 07:05 → CATHLAB 11:53 → 2ND 11:55
PROVIDERS: Emergency Medicine; Internal Medicine; Admitting Provider Internal Medicine Adolescent Medicine; Emergency Provider Emergency Medicine; Visit Provider Internal Medicine Adolescent Medicine
PROC: 027035Z Dilation of Coronary Artery, One Artery with Two Drug-eluting Intraluminal Devices, Percutaneous Approach (ICD-10-PCS; principal; 2023-11-08 10:55)
DX: I21.4 Non-ST elevation (NSTEMI) myocardial infarction (principal); I16.1 Hypertensive emergency; I50.20 Unspecified systolic (congestive) heart failure; I25.10 Atherosclerotic heart disease of native coronary artery without angina pectoris; J45.909 Unspecified asthma, uncomplicated; F17.210 Nicotine dependence, cigarettes, uncomplicated; E78.5 Hyperlipidemia, unspecified; I11.0 Hypertensive heart disease with heart failure; I95.89 Other hypotension
CPT/HCPCS: 36415; 71045; 80048; 80053; 80061; 83036; 83605; 83735; 84443; 84484; 84703; 85007; 85025; 85347; 92928; 92979; 93005; 93270; 93306; 93308; 93454; 93976; 99152; 99153; 99285; C1725; C1769; C1874; C9600; J1644; J2405; J3475; Q9957; Q9967

== ENCOUNTER 2023-12-01 09:39 | Outpatient (RCR) | payer BC, SELFPAY | END 2024-01-27 14:00 | disposition home or self-care (01) | LOC: PT 09:39 | PROVIDERS: Visit Provider Internal Medicine | DX: I25.10 Atherosclerotic heart disease of native coronary artery without angina pectoris (principal); Z95.5 Presence of coronary angioplasty implant and graft | CPT/HCPCS: 93798 ==

== ENCOUNTER 2024-02-17 14:11 | Outpatient (CLI) | payer BC, SELFPAY ==
[2024-02-17 14:41] LABS: Basophils # 0.1 K/mm3 (0-0.2); Basophils % 1.1 % (0.1-2.0); Eosinophils # 0.4 K/mm3 (0.0-0.4); Eosinophils % 5.1 % (0.1-12.0); Hematocrit 38.6 % (37.0-47.0); Hemoglobin 11.7 g/dL (12.2-16.2); Lymphocytes # 2.5 K/mm3 (0.7-4.5); Lymphocytes % 28.8 % (10-50); Mean Corpuscular HGB Conc 30.3 g/dL (31.8-35.4); Mean Corpuscular Hemoglobin 22.3 pg (27.0-31.2); Mean Corpuscular Volume 73.5 fl (81-99); Mean Platelet Volume 7.9 fl (7.4-10.4); Monocytes # 0.5 K/mm3 (0.1-1.0); Monocytes % 5.3 % (1.7-9.3); Neutrophils # 5.2 K/mm3 (1.8-7.8); Neutrophils % 59.7 % (37.0-80.0); Platelet Count 398 K/mm3 (142-424); Red Blood Count 5.25 M/mm3 (4.20-5.40); Red Cell Distribution Width 15.9 % (11.5-17.5); White Blood Count 8.7 K/mm3 (4.8-10.8)
[2024-02-17 15:41] LABS: Free T4 (Free Thyroxine) 0.93 ng/dl (0.78-2.19)
[2024-02-17 15:44] LABS: Anion Gap 10.3 mEq/L (5-15); Blood Urea Nitrogen 8 mg/dl (7-17); Carbon Dioxide 26 mmol/L (22.0-30.0); Chloride 105 mmol/L (98-107); Estimated Glomerular Filt Rate 78 ml/min (>60); GFR (African American) 94 ML/MIN (>60); Potassium 4.3 mmoL/L (3.5-5.1); Sodium 137 mmol/L (136-145)
[2024-02-17 15:45] LABS: Bilirubin,Indirect 0.7 mg/dL (0.0-0.9); Bilirubin,Total 0.7 mg/dl (0.2-1.3); Bilirubin,Unconjugated 0.8 mg/dL (0.0-1.1); Calcium 9.6 mg/dl (8.4-10.2); Glucose 83 mg/dl (74-100); Magnesium 1.9 mg/dl (1.6-2.3)
[2024-02-17 15:46] LABS: Alanine Aminotransferase 22 U/L (12-78); Albumin Level 4.2 g/dl (3.5-5.0); Aspartate Amino Transferase 27 U/L (14-36); Chol/HDL Ratio 3.9 (1-3.5); Cholesterol 220 mg/dl (140-200); Direct LDL Cholesterol 146.37 mg/dL (100-129); HDL Cholesterol 56 mg/dl (40-60); Total Protein,Serum 7.2 g/dl (6.3-8.2); Triglycerides 97 mg/dl (30-150); VLDL Cholesterol 19 mg/dL (0-40)
[2024-02-17 15:47] LABS: Alkaline Phosphatase 64 U/L (38-126); Thyroid Stimulating Hormone 0.94 uIU/mL (0.465-4.68)
== END 2024-02-17 23:59 | disposition home or self-care (01) ==
LOC: LAB 14:12
PROVIDERS: PCP Nurse Practitioner Family; Visit Provider Physician Assistant
DX: I21.4 Non-ST elevation (NSTEMI) myocardial infarction (principal); I11.9 Hypertensive heart disease without heart failure; I25.10 Atherosclerotic heart disease of native coronary artery without angina pectoris; E78.49 Other hyperlipidemia; Z87.891 Personal history of nicotine dependence
CPT/HCPCS: 36415; 80048; 80061; 80076; 83735; 84439; 84443; 85025

== ENCOUNTER 2024-02-29 12:47 | Outpatient (CLI) | payer BC, SELFPAY ==
--- NOTE | 2024-02-29 12:51 | CA_ITS ---
APPROVED REPORT EXAM: Comprehensive 2D, Doppler, and color-flow Echocardiogram Mounter Hand: Kim Tee RT(R) Ht: 5 ft 6 in Wt: 181lbs BSA: 1.92 BP: 183/104 mmHg Indications: akinesis of apex, HTN, hyperlipidemia, CAD, stent 10/2023 2D Dimensions Left Atrium 3.53 cm F: 2.7 - 3.8 LVEF (Langford's) 44.40 % F: 54 - 74 LVOT 2.02 cm (M/F) 1.5-2.5 LV Volume 113.50 mL F: 46 - 106 LV Volume Index 59.1 mL/m2 F: 29 - 61 LA Volume 24.00 mL LA Volume Index 12.50 mL/m2 (M/F) 16-34 EF AP4 46.40 % EF AP2 41.7 % EF BP 44.4 % GL Strain -14.4 % M-Mode Dimensions RVDd 2.78 cm (0.9-2.6) LVDd 4.79 cm (3.5-5.7) Ao Diam 2.35 cm (2.0-3.7) LVDs 3.75 cm (3.5-5.7) IVSd 1.07 cm (0.6-1.1) PWd 0.84 cm (0.6-1.1) EF (Teich) 43.90% FS 21.70% EDV (Teich) 107.00 mL ESV (Teich) 60.00 mL LV Diastology E Decel Time 181 (160-240 msec) E/A Ratio 0.8 Mitral Valve MV E Max Jefry. 62.0 (40-130 cm/s) MV A Velocity 81.0 (40-130 cm/s) E/A Ratio 0.77 MV Decel. Time 181 (160-240 ms) Left Ventricle The left ventricle is normal size. The left ventricular systolic function is normal. The left ventricular ejection fraction is within the normal range. There is increased LV wall thickness. There is normal LV segmental wall motion. Transmitral Doppler flow pattern suggests impaired LV relaxation. LVEF is 55%. Right Ventricle The right ventricle is normal size. The right ventricular systolic function is normal. Atria The left atrium size is normal. The right atrium size is normal. There is no Doppler evidence of interatrial shunt. Aortic Valve The aortic valve opens well. There is no aortic valvular stenosis. Trace aortic regurgitation. Mitral Valve The mitral valve is normal in structure. No evidence of mitral valve stenosis. There is no mitral valve regurgitation noted. Tricuspid Valve The tricuspid valve leaflets are thin and pliable. Trace tricuspid regurgitation. There is insufficient TR jet to estimate RVSP. Pulmonic Valve The pulmonary valve is normal in structure. Trace pulmonic regurgitation. Great Vessels The aortic root is normal in size. The ascending aorta is normal in size. IVC is normal in size and collapses >50% with inspiration. Pericardium There is no pericardial effusion. Other Information Study Quality: Fair Conclusion Normal biventricular systolic function. No significant valvular stenosis or regurgitation. Compared to prior study from 10/2023, the previously visualized apical wall motion abnormality is no longer seen. Electronically signed by : Angelia Hwang MD 03/06/2024 13:20:03
== END 2024-02-29 23:59 | disposition home or self-care (01) ==
LOC: RT 12:47
PROVIDERS: PCP Nurse Practitioner Family; Visit Provider Physician Assistant
DX: I25.10 Atherosclerotic heart disease of native coronary artery without angina pectoris (principal); I21.4 Non-ST elevation (NSTEMI) myocardial infarction; Z87.891 Personal history of nicotine dependence
CPT/HCPCS: 93306

== ENCOUNTER 2024-09-19 10:41 | Outpatient (CLI) | payer BC, SELFPAY ==
[2024-09-19 11:00] LABS: Basophils # 0.1 K/mm3 (0-0.2); Basophils % 1.5 % (0.1-2.0); Eosinophils # 0.4 K/mm3 (0.0-0.4); Eosinophils % 6.5 % (0.1-12.0); Hematocrit 30.1 % (37.0-47.0); Hemoglobin 8.7 g/dL (12.2-16.2); Lymphocytes # 1.7 K/mm3 (0.7-4.5); Lymphocytes % 26.3 % (10-50); Mean Corpuscular HGB Conc 28.9 g/dL (31.8-35.4); Mean Corpuscular Volume 62.3 fl (81-99); Mean Platelet Volume 8.7 fl (7.4-10.4); Monocytes # 0.6 K/mm3 (0.1-1.0); Monocytes % 9.1 % (1.7-9.3); Neutrophils # 3.7 K/mm3 (1.8-7.8); Neutrophils % 56.4 % (37.0-80.0); Platelet Count 674 K/mm3 (142-424); Red Blood Count 4.83 M/mm3 (4.20-5.40); Red Cell Distribution Width 18.8 % (11.5-17.5); White Blood Count 6.6 K/mm3 (4.8-10.8)
[2024-09-19 11:30] LABS: Albumin Level 4.4 g/dl (3.5-5.0); Chloride 106 mmol/L (98-107); Potassium 4.5 mmoL/L (3.5-5.1); Sodium 138 mmol/L (136-145)
[2024-09-19 11:32] LABS: Alanine Aminotransferase 17 U/L (12-78); Anion Gap 8.5 mEq/L (5-15); Aspartate Amino Transferase 22 U/L (14-36); Bilirubin,Unconjugated 0.3 mg/dL (0.0-1.1); Blood Urea Nitrogen 7 mg/dl (7-17); Carbon Dioxide 28 mmol/L (22.0-30.0); Estimated Glomerular Filt Rate 78 ml/min (>60); GFR (African American) 94 ML/MIN (>60); Total Protein,Serum 6.8 g/dl (6.3-8.2)
[2024-09-19 11:33] LABS: Alkaline Phosphatase 69 U/L (38-126); Bilirubin,Indirect 0.3 mg/dL (0.0-0.9); Bilirubin,Total 0.3 mg/dl (0.2-1.3); Calcium 9.5 mg/dl (8.4-10.2); Chol/HDL Ratio 3.8 (1-3.5); Cholesterol 207 mg/dl (140-200); Glucose 97 mg/dl (74-100); HDL Cholesterol 55 mg/dl (40-60); Magnesium 2.1 mg/dl (1.6-2.3); Triglycerides 83 mg/dl (30-150); VLDL Cholesterol 17 mg/dL (0-40)
[2024-09-19 11:52] LABS: Direct LDL Cholesterol 130.97 mg/dL (100-129)
[2024-09-19 12:12] LABS: Thyroid Stimulating Hormone 2.17 uIU/mL (0.465-4.68)
== END 2024-09-19 23:59 | disposition home or self-care (01) ==
LOC: LAB 10:42
PROVIDERS: PCP Nurse Practitioner Family; Visit Provider Physician Assistant
DX: I25.10 Atherosclerotic heart disease of native coronary artery without angina pectoris (principal); I10 Essential (primary) hypertension; E78.49 Other hyperlipidemia; I21.4 Non-ST elevation (NSTEMI) myocardial infarction
CPT/HCPCS: 36415; 80048; 80061; 80076; 83735; 84439; 84443; 85025

== ENCOUNTER 2024-10-03 11:22 | Outpatient (CLI) | payer BC, SELFPAY ==
[2024-10-03 13:23] LABS: Basophils # 0.1 K/mm3 (0-0.2); Basophils % 0.9 % (0.1-2.0); Eosinophils # 0.6 K/mm3 (0.0-0.4); Eosinophils % 4.8 % (0.1-12.0); Hematocrit 30.4 % (37.0-47.0); Hemoglobin 8.9 g/dL (12.2-16.2); Lymphocytes # 2.3 K/mm3 (0.7-4.5); Lymphocytes % 18.6 % (10-50); Mean Corpuscular HGB Conc 29.3 g/dL (31.8-35.4); Mean Corpuscular Volume 61.4 fl (81-99); Mean Platelet Volume 9.5 fl (7.4-10.4); Monocytes % 7.9 % (1.7-9.3); Neutrophils # 8.2 K/mm3 (1.8-7.8); Neutrophils % 67.5 % (37.0-80.0); Platelet Count 421 K/mm3 (142-424); Red Blood Count 4.95 M/mm3 (4.20-5.40); White Blood Count 12.1 K/mm3 (4.8-10.8)
[2024-10-04 21:41] LABS: Iron 31 ug/dL (37-170)
[2024-10-04 21:51] LABS: Total Iron Binding Capacity 508 ug/dL (265-497)
[2024-10-04 22:17] LABS: Ferritin 3.81 ng/ml (6.24-137)
== END 2024-10-03 23:59 | disposition home or self-care (01) ==
LOC: LAB 11:23
PROVIDERS: PCP Nurse Practitioner Family; Visit Provider Physician Assistant
DX: R53.83 Other fatigue (principal); D64.9 Anemia, unspecified
CPT/HCPCS: 36415; 82728; 83540; 83550; 85025

== ENCOUNTER 2025-01-17 09:12 | Outpatient (CLI) | payer BC, SELFPAY ==
[2025-01-17 14:24] LABS: Hematocrit 35.8 % (37.0-47.0); Hemoglobin 11.4 g/dL (12.2-16.2); Immature Granulocytes % 0.1 %; Mean Corpuscular HGB Conc 31.8 g/dL (31.8-35.4); Mean Corpuscular Hemoglobin 26.2 pg (27.0-31.2); Mean Corpuscular Volume 82.3 fl (81-99); Nucleated Red Blood Cells % 0 %; Platelet Count 527 K/mm3 (142-424); Red Blood Count 4.35 M/mm3 (4.20-5.40); Red Cell Distribution Width-SD 47.7 fL; White Blood Count 8.0 K/mm3 (4.8-10.8)
[2025-01-17 15:12] LABS: Iron 125 ug/dL (37-170)
[2025-01-17 15:13] LABS: Cholesterol 204 mg/dl (140-200); HDL Cholesterol 43 mg/dl (40-60); Triglycerides 102 mg/dl (30-150)
[2025-01-17 15:24] LABS: Total Iron Binding Capacity 373 ug/dL (265-497)
[2025-01-17 15:49] LABS: Ferritin 19.5 ng/ml (6.24-137)
== END 2025-01-17 23:59 | disposition home or self-care (01) ==
LOC: LAB.DROPOF 01-18 15:09
PROVIDERS: PCP Nurse Practitioner Family; Visit Provider Nurse Practitioner Family
DX: I10 Essential (primary) hypertension (principal); D50.9 Iron deficiency anemia, unspecified; E78.49 Other hyperlipidemia; R53.83 Other fatigue
CPT/HCPCS: 80061; 82728; 83540; 83550; 85025

== ENCOUNTER 2025-03-22 11:34 | Outpatient (CLI) | payer BC, SELFPAY ==
--- OUTSIDE RECORDS SUMMARY | 2025-01-27 05:00 | XMS_ITS ---
Author Organization [facility] Address [address] [place] [address] Phone [phone] Care Team Providers Care Recruitment Internship Name Role Phone Gore Janis Unavailable [phone] Migration, Provider Unavailable Unavailable REASON FOR VISIT EMR-[facility] Encounters Encounter Location Date Provider Diagnosis [address] [address] 01/27/2025 Provider Migration Plan Of Treatment No Information Progress Notes * KRISTOFER MCKEONOB: 9 (45 yo F)Acc No.[id number]:01/27/2025 Patient: АНДРЕЙ CHEW :1980 A ge:44 Y S ex:Female Address:[address] [address] Subjective: * Chief Complaints: * E MR-Greg * * Date:
--- OUTSIDE RECORDS SUMMARY | 2025-01-28 05:00 | XMS_ITS ---
Author Organization [facility] Address [address] [place] [address] Phone [phone] Care Team Providers Care Chemical Analyst Name Role Phone Janis Gore [phone] Migration, Provider Unavailable Unavailable REASON FOR VISIT [place] [place] Medication SIG (Take, Route, Frequency, Duration) Notes Start Date End Date Status amLODIPine Besylate 5 MG Tablet Oral Active Symbicort 160-4.5 MCG/ACT Aerosol Inhalation Active Azithromycin 250 MG Tablet Oral Active Encounters Encounter Location Date Provider Diagnosis [address] [address] 01/28/2025 Provider Migration Plan Of Treatment No Information Progress Notes * KRISTOFER MCKEONOB: 9 (45 yo F)Acc No.[id number]:01/28/2025 Patient: АНДРЕЙ CHEW :1980 A ge:44 Y S ex:Female Address:[address] [place] [address], [address] Subjective: * Chief Complaints: * E MR-Greg * Medications: T akingSymbicort 160-4.5 MCG/ACT Aerosol Inhalation amLODIPine Besylate 5 MG Tablet Oral Azithromycin 250 MG Tablet Oral Taking Symbicort 160-4.5 MCG/ACT Aerosol Inhalation Taking amLODIPine Besylate 5 MG Tablet Oral Taking Azithromycin 250 MG Tablet Oral * * Date:
--- OUTSIDE RECORDS SUMMARY | 2025-03-22 11:37 | XMS_ITS | Patient Health Record ---
Author Organization [facility] Address [address] [place] [address] Phone [phone] Care Team Providers Care Display Coordinator Name Role Phone Janis Gore Unavailable [phone] Migration, Provider Unavailable Unavailable Reason For Referral No Information Medications Medication SIG (Take, Route, Frequency, Duration) Notes Start Date End Date Status amLODIPine Besylate 5 MG Tablet Oral Active Symbicort 160-4.5 MCG/ACT Aerosol Inhalation Active Azithromycin 250 MG Tablet Oral Active Encounters Encounter Location Date Provider Diagnosis [facility] [address] [place] [address] 01/27/2025 Provider Migration [facility] [address] [place] [address] 01/28/2025 Provider Migration Plan Of Treatment No Information Insurance Providers Payer Name Payer Address Payer Phone Subscriber Number Group Number Insured Name Patient Relationship to Insured Coverage Start Date Coverage End Date [employer] [address] [place] [phone] [id number] АНДРЕЙ MCKEON Self - patient is the insured
[2025-03-22 12:24] LABS: Alanine Aminotransferase 15 U/L (12-78); Albumin Level 4.0 g/dl (3.5-5.0); Alkaline Phosphatase 69 U/L (38-126); Aspartate Amino Transferase 21 U/L (14-36); Bilirubin,Direct 0.0 mg/dl (0.0-0.4); Bilirubin,Indirect 0.2 mg/dL (0.0-0.9); Bilirubin,Total 0.2 mg/dl (0.2-1.3); Bilirubin,Unconjugated 0.3 mg/dL (0.0-1.1); Cholesterol 184 mg/dl (140-200); HDL Cholesterol 50 mg/dl (40-60); Total Protein,Serum 6.4 g/dl (6.3-8.2); Triglycerides 118 mg/dl (30-150)
== END 2025-03-22 23:59 | disposition home or self-care (01) ==
LOC: LAB 11:35
PROVIDERS: PCP Nurse Practitioner Family; Visit Provider Physician Assistant
DX: I25.10 Atherosclerotic heart disease of native coronary artery without angina pectoris (principal); I10 Essential (primary) hypertension; E78.5 Hyperlipidemia, unspecified
CPT/HCPCS: 36415; 80061; 80076